=== PATIENT | female | born 1945 | race Caucasian/White ===

== ENCOUNTER → 2020-09-12 09:44 | Outpatient (CLI) | payer MEDICARE, SELFPAY ==
--- NOTE | 2020-09-12 09:49 | CT_ITS ---
STUDY: LOW DOSE CT LUNG CANCER SCREENING REASON FOR EXAM: Female, 75 years old. One pack per day smoking history x50 years TOBACCO USE -- CHRONIC TOBACCO USE,SCREENING FOR LUNG CA RADIATION DOSAGE (If Supplied By Facility): CTDIvol = ( 2.01 ) mGy, DLP = ( 61.68 ) mGycm TECHNIQUE: No contrast was administered. Low dose technique was utilized (average mAS-38 and kVp 120). 1.25 mm axial source images with a slice interval of 1.25-mm were reconstructed in lung windows. 2.5 mm axial source images with a slice interval of 2.5-mm were reconstructed in lung windows. 5.0 mm axial source images with a slice interval of 5.0-mm were reconstructed in soft tissue windows. Nodule measured using lung windows on PACS and/or independent workstation with automated measurement of minimum and maximum diameter. Nodule measurement reported as average diameter rounded to the nearest whole number. Growth is defined as an increase ins size of greater than 1.5 mm. COMPARISON: None. NODULES: Lung windows show underlying emphysema with diffuse interstitial fibrotic changes, nonspecific pleural thickening in both hemithoraces and honeycombing predominantly in the periphery of the upper lobes. There is no organized infiltrate or ground glass opacifications. There is however, a noncalcified nodule in the medial aspect of the left lower lobe on axial image 114. It measures 1.1 x 0.8 x 1.06 cm. Since there are no previous studies available for comparison, further evaluation with PET/CT scan is recommended to assess for abnormal uptake. Aorta: Peripheral calcifications, no demonstrated aneurysm Coronary arteries: Calcified coronary vessels. CT/Low Dose CT Lung Screening IMPRESSION: There is a concerning noncalcified spiculated 1.1 x 0.8 x 1.1 cm noncalcified nodule in the medial aspect of the left lower lobe best seen on axial image 114. Since there are no previous studies available for comparison, further evaluation with PET/CT recommended Lung Rads category 4A IMPORTANT NOTES FOR USE: ACR Lung-RADS Version 1.1 Assessment Categories Release Date: 2018 Category: Coded 0-4 bases on nodule(s) with highest degree of suspicion. Negative screen is defined as categories 1 and 2; a positive screen is defined as categories 3 and 4. Category 3 and 4A nodules that are unchanged on interval CT should be coded as category 2, and individuals returned to screening in 12 months. Category 4X: Category 3 or 4 nodules with additional imaging findings that increase the suspicion of lung cancer, such as spiculation, GGN that doubles in size in 1 year, enlarged lymph notes, etc. Category Modifiers: S (significant finding unrelated to lung cancer) Electronically Signed: Lavon Zamora MD at 12:38 EDT , Service support ,
== END ==
PROVIDERS: PCP Student in an Organized Health Care Education/Training Program; Referring Provider Student in an Organized Health Care Education/Training Program; Visit Provider Student in an Organized Health Care Education/Training Program
DX: Z12.2 Encounter for screening for malignant neoplasm of respiratory organs (principal); Z87.891 Personal history of nicotine dependence
CPT/HCPCS: 71271

== ENCOUNTER → 2020-12-22 11:05 | Outpatient (CLI) | payer MEDICARE, SELFPAY ==
[2020-12-22 11:37] VITALS: PULSE 103; PULSE 104; PULSE 105; PULSE 106; PULSE 93; PULSE 94; O2SAT 90; O2SAT 91; O2SAT 92; O2SAT 94; O2SAT 95
--- NOTE | 2020-12-23 10:18 | WT_ITS ---
PSN 6 Minute Walk Test 6 Minute Walk Test 6 Minute Walk Test: 6 Minute Walk Test PSN:6-Minute Walk Test Start: 12/22/20 11:36 Freq: Status: Active Protocol: RESP.6MINW Document 12/22/20 11:37 [facility] (Rec: 12/22/20 11:39 [facility] [id number]) 6 Minute Walk Test Date Performed 12/22/20 Time Performed 11:15 Height 5 ft 3 in Weight: 46.72 kg Weight in Pounds 103.[address]: Rosendo Lieberman Assistive device used: None Pre-test Oxygen Delivery Method Room Air Pulse Ox (%) 94 Pulse Rate (60-100 beats/min) 93 Dyspnea Vinnie Scale (0-10) 3 1st minute Oxygen Delivery Method Room Air Pulse Ox (%) 91 Pulse Rate (60-100 beats/min) 106 H Dyspnea Vinnie Scale (0-10) 3 Number of Rests Taken 0 2nd minute Oxygen Delivery Method Room Air Pulse Ox (%) 90 Pulse Rate (60-100 beats/min) 103 H Dyspnea Vinnie Scale (0-10) 3 Number of Rests Taken 0 3rd minute Oxygen Delivery Method Room Air Pulse Ox (%) 90 Pulse Rate (60-100 beats/min) 104 H Dyspnea Vinnie Scale (0-10) 3 Number of Rests Taken 0 4th minute Oxygen Delivery Method Room Air Pulse Ox (%) 91 Pulse Rate (60-100 beats/min) 103 H Dyspnea Vinnie Scale (0-10) 3 Number of Rests Taken 0 5th minute Oxygen Delivery Method Room Air Pulse Ox (%) 91 Pulse Rate (60-100 beats/min) 106 H Dyspnea Vinnie Scale (0-10) 4 Number of Rests Taken 0 Reported Symptoms Increased Work of Breathing 6th minute Oxygen Delivery Method Room Air Pulse Ox (%) 92 Pulse Rate (60-100 beats/min) 105 H Dyspnea Vinnie Scale (0-10) 4 Number of Rests Taken 0 Reported Symptoms Increased Work of Breathing Post-test Oxygen Delivery Method Room Air Pulse Ox (%) 95 Pulse Rate (60-100 beats/min) 94 Dyspnea Vinnie Scale (0-10) 3 Full Laps Walked 20 Partial Lap, Number of Tiles Walked 39 Total Distance Walked (ft) 1219 Interpretation Interpretation: The patient ambulated 1219 feet over the course of 6 minutes beginning on room air without assistive devices or breaks. Pretesting oxygen saturation was noted to be 94% on room air. With ambulation, the dina oxygen saturation was 90%. This represents a significant exertional oxygen desaturation. Recommendations Recommendations: There is no indication for the use of supplemental oxygen at this time. However, close interval follow-up is recommended, given the degree of oxygen desaturation noted during this study.
== END ==
PROVIDERS: PCP Student in an Organized Health Care Education/Training Program; Referring Provider Internal Medicine Critical Care Medicine; Visit Provider Internal Medicine Critical Care Medicine
DX: J44.9 Chronic obstructive pulmonary disease, unspecified (principal)
CPT/HCPCS: 94618

== ENCOUNTER → 2021-01-24 14:43 | Outpatient (CLI) | payer MEDICARE, SELFPAY ==
--- NOTE | 2021-01-24 14:44 | CT_ITS ---
STUDY: CT CHEST WITHOUT CONTRAST REASON FOR EXAM: Female, 75 years old. Lung Nodule. Bilateral mastectomy. RADIATION DOSAGE (If Supplied By Facility): CTDIvol = ( 6.05 ) mGy, DLP = ( 208.71 ) mGycm TECHNIQUE: Transaxial imaging was performed without the administration of intravenous contrast material. Multiplanar coronal and sagittal images were reformatted. Individualized dose optimization techniques were used for this CT. COMPARISON: Comparison is made with prior study dated 09/12/2020. FINDINGS: The patient is status post bilateral mastectomy. Hyperinflation. The symphysis changes. Mild linear scarring at the lung apices. The previously seen 1.1 cm x 1.1 cm spiculated density in the posterior segment of the left lower lobe has decreased in size. It presently measures 7 mm. This most likely represents a focal area of scarring. There is no demonstrated pleural abnormality. There are calcifications of the coronary arteries. There are multiple small lymph nodes within the mediastinum, which are normal in size and morphology most compatible with reactive lymph hyperplasia. Normal hilar regions. Normal unenhanced pulmonary arteries. There is atherosclerotic calcification of the aortic arch with tortuosity and elongation of the aortic arch and descending thoracic aorta. There are multi-level degenerative changes of the thoracic spine. There is no demonstrated abnormality of the visualized upper abdomen. CT/Chest without Contrast IMPRESSION: Interval decrease in size of the noncalcified nodule in the posteromedial segment of the left lower lobe. It presently measures 7 mm. The remainder the examination is unchanged. Electronically Signed: Andrey Pérez MD at 15:31 EDT , Service support ,
== END ==
PROVIDERS: PCP Student in an Organized Health Care Education/Training Program; Referring Provider Internal Medicine Critical Care Medicine; Visit Provider Internal Medicine Critical Care Medicine
DX: R91.1 Solitary pulmonary nodule (principal)
CPT/HCPCS: 71250

== ENCOUNTER → 2021-12-28 | Outpatient (CLI) | payer MEDICARE, SELFPAY ==
--- NOTE | 2021-12-28 12:52 | CT_ITS ---
STUDY: LOW DOSE CT LUNG CANCER SCREENING REASON FOR EXAM: Female, 76 years old. Smoker and gt; 40 pack years RADIATION DOSAGE (If Supplied By Facility): CTDIvol = ( 2.01 ) mGy, DLP = ( 67.71 ) mGycm TECHNIQUE: No contrast was administered. Low dose technique was utilized (average mAS-38 and kVp 120). 1.25 mm axial source images with a slice interval of 1.25-mm were reconstructed in lung windows. 2.5 mm axial source images with a slice interval of 2.5-mm were reconstructed in lung windows. 5.0 mm axial source images with a slice interval of 5.0-mm were reconstructed in soft tissue windows. COMPARISON: Comparison is made with prior study dated 01/24/2021. NODULES: Stable 9.5 mm spiculated nodule in the posterior medial segment of the left lower lobe as seen on axial image #123. Emphysema: Hyperinflation. Emphysematous changes. Stable increased markings at the lung apices suggestive of prior scarring. Endobronchial lesion: None Aorta: Atherosclerotic plaque formation of the aortic arch. CORONARY ARTERIES: Coronary artery calcification is seen. Heart: Unremarkable Pulmonary artery: Unremarkable Mediastinal nodes: Unremarkable Other chest and abdominal findings: Bilateral breast prostheses. Increased thoracic kyphosis. CT/Low Dose CT Lung Screening IMPRESSION: Lung-RADS category 2 - Continue annual screening with LDCT in 12 months. IMPORTANT NOTES FOR USE: ACR Lung-RADS Version 1.1 Assessment Categories Release Date: 2018 Category: Coded 0-4 bases on nodule(s) with highest degree of suspicion. Negative screen is defined as categories 1 and 2; a positive screen is defined as categories 3 and 4. Category 3 and 4A nodules that are unchanged on interval CT should be coded as category 2, and individuals returned to screening in 12 months. Category 4X: Category 3 or 4 nodules with additional imaging findings that increase the suspicion of lung cancer, such as spiculation, GGN that doubles in size in 1 year, enlarged lymph notes, etc. Category Modifiers: S (significant finding unrelated to lung cancer) Electronically Signed: Andrey Pérez MD at 13:48 EDT ,
[2021-12-28 13:00] VITALS: PULSE 100; PULSE 102; PULSE 103; PULSE 107; PULSE 91; PULSE 97; O2SAT 91; O2SAT 92; O2SAT 93; O2SAT 94; O2SAT 95
--- NOTE | 2021-12-28 14:52 | PCM.PSN.6M ---
PSN 6 Minute Walk Test 6 Minute Walk Test 6 Minute Walk Test: 6 Minute Walk Test PSN:6-Minute Walk Test Start: 12/28/21 13:12 Freq: Status: Active Protocol: RESP.6MINW Document 12/28/21 13:00 [facility] (Rec: 12/28/21 13:16 [id number]) 6 Minute Walk Test Date Performed 12/28/21 Time Performed 13:00 Height 5 ft 4 in Weight: 48.081 kg Weight in Pounds 106.[address]: Sherri Mancera MANAGER [employer] FIO2 (% Oxygen) 21 Assistive device used: None Pre-test Oxygen Delivery Method Room Air Pulse Ox (%) 95 Pulse Rate (60-100 beats/min) 91 Dyspnea Vinnie Scale (0-10) 0 Exertion Vinnie Scale (6-20) 6 1st minute Oxygen Delivery Method Room Air Pulse Ox (%) 94 Pulse Rate (60-100 beats/min) 103 H 2nd minute Oxygen Delivery Method Room Air Pulse Ox (%) 91 Pulse Rate (60-100 beats/min) 107 H 3rd minute Oxygen Delivery Method Room Air Pulse Ox (%) 93 Pulse Rate (60-100 beats/min) 102 H 4th minute Oxygen Delivery Method Room Air Pulse Ox (%) 92 Pulse Rate (60-100 beats/min) 103 H 5th minute Oxygen Delivery Method Room Air Pulse Ox (%) 92 Pulse Rate (60-100 beats/min) 103 H 6th minute Oxygen Delivery Method Room Air Pulse Ox (%) 93 Pulse Rate (60-100 beats/min) 100 Post-test Oxygen Delivery Method Room Air Pulse Ox (%) 95 Pulse Rate (60-100 beats/min) 97 Dyspnea Vinnie Scale (0-10) 3 Exertion Vinnie Scale (6-20) 8 Full Laps Walked 20 Partial Lap, Number of Tiles Walked 0 Total Distance Walked (ft) 1180 Interpretation Interpretation: The patient was able to ambulate 1180 feet over the course of 6 minutes on room air with no assistive devices or breaks. The patient did experience significant desaturation from a baseline of 95% to as low as 91%. There was an element of reflexive tachycardia with a peak heart rate of 108 bpm. These findings are consistent with a respiratory limitation exercise tolerance. Recommendations Recommendations: No supplemental oxygen is indicated at this time. However, patient will need to be followed closely given level of desaturation.
== END | disposition home or self-care (01) ==
LOC: CT 12:50
PROVIDERS: PCP Student in an Organized Health Care Education/Training Program; Referring Provider Nurse Practitioner Acute Care; Visit Provider Nurse Practitioner Acute Care
DX: J44.9 Chronic obstructive pulmonary disease, unspecified (principal); Z87.891 Personal history of nicotine dependence
CPT/HCPCS: 71271; 94618

== ENCOUNTER → 2022-01-02 | Outpatient (CLI) | payer MEDICARE, SELFPAY ==
--- NOTE | 2022-01-03 09:59 | PFT ---
INTRODUCTION: The patient is a 76-year-old female that presents for pulmonary function studies secondary to a diagnosis of COPD. Respiratory therapy reported good patient effort. Bronchodilators were used during testing. INTERPRETATION: Forced expiration spirometry demonstrates the presence of a moderately severe large airways obstructive ventilatory defect. There was no significant response to aerosolized bronchodilators. Spirograms are of good quality and plateau gradually indicating slow emptying of the lungs. Body plus tomography was performed and revealed an elevated RV to 179% of predicted, indicative of underlying air trapping. Diffusing capacity by single breath CO was within normal limits. IMPRESSION: Irreversible moderately severe large airways obstructive ventilatory defect with associated air trapping and preserved diffusing capacity.
== END | disposition home or self-care (01) ==
LOC: PSN 09:50
PROVIDERS: PCP Student in an Organized Health Care Education/Training Program; Referring Provider Nurse Practitioner Acute Care; Visit Provider Nurse Practitioner Acute Care
DX: J44.9 Chronic obstructive pulmonary disease, unspecified (principal)
CPT/HCPCS: 94060; 94726; 94729

== ENCOUNTER → 2023-01-05 | Outpatient (CLI) | payer MEDICARE, SELFPAY ==
--- NOTE | 2023-01-05 09:35 | CT_ITS ---
EXAM: CT CHEST, LUNG CANCER SCREENING WITHOUT INTRAVENOUS CONTRAST CLINICAL INDICATION: 1 ppd for 55 years. COPD TECHNIQUE: Helically acquired images were obtained of the chest without intravenous contrast using low dose (LDCT) lung cancer screening protocol. This CT exam was performed using one or more of the following dose reduction techniques: automated exposure control, adjustment of the mA and/or kV according to patient size, and/or use of iterative reconstruction technique. COMPARISON: 12/28/2021. FINDINGS: LUNGS AND PLEURAL SPACES: Increased size of spiculated nodule versus coalescence of 2 adjacent small nodules in the medial aspect of the left lower lobe now measuring approximately 1.6 cm (images 107 through 124, series 2). Minimal lingular scarring and/or atelectasis. No pleural effusion or thickening. No pneumothorax. HEART: Coronary artery calcifications. Heart size is normal. No pericardial effusion. MEDIASTINUM: No significant abnormality. No mediastinal or hilar adenopathy. Esophagus is unremarkable. No hiatal hernia. THYROID: No significant abnormality. No thyroid lesions. BONES/JOINTS: Likely minimal/early fibrotic changes particularly at the right apex. Degenerative changes in the spine. No suspicious lytic or blastic abnormality. VASCULATURE: Atherosclerosis of the aorta and its branch vessels. LYMPH NODES: No significant abnormality. No enlarged lymph nodes. CT/Low Dose CT Lung Screening IMPRESSION: ACR Lung CT Screening Reporting And Data System (Lung-RADS) score: 4XS - Very Suspicious. There are features or imaging findings that increase the suspicion of malignancy and additional clinically significant or potentially clinically significant findings described in this report. Recommend chest CT with or without contrast, PET/CT and/or tissue sampling depending on the probability of malignancy and comorbidities. PET/CT may be used when there is a >=8 mm solid component. For new large nodules that develop on an annual repeat screening CT, a 1 month LDCT may be recommended to address potentially infectious or inflammatory conditions. Electronically Signed: Torey Mahmood DO at 10:03 EDT ,
== END | disposition home or self-care (01) ==
LOC: CT 09:33
PROVIDERS: PCP Student in an Organized Health Care Education/Training Program; Referring Provider Nurse Practitioner Acute Care; Visit Provider Nurse Practitioner Acute Care
DX: Z12.2 Encounter for screening for malignant neoplasm of respiratory organs (principal); F17.210 Nicotine dependence, cigarettes, uncomplicated
CPT/HCPCS: 71271

== ENCOUNTER → 2023-01-16 | Outpatient (CLI) | payer MEDICARE, SELFPAY ==
[2023-01-16 11:22] LABS: Platelet Count 155 K/mm3 (150-450)
[2023-01-16 11:31] LABS: International Normalized Ratio 0.9
[2023-01-16 11:32] LABS: Partial Thromboplast Time 24.4 Seconds (24.1-36.2)
== END | disposition home or self-care (01) ==
PROVIDERS: PCP Student in an Organized Health Care Education/Training Program; Referring Provider Nurse Practitioner Acute Care; Visit Provider Nurse Practitioner Acute Care
DX: I48.91 Unspecified atrial fibrillation (principal); R91.8 Other nonspecific abnormal finding of lung field
CPT/HCPCS: 36415; 85049; 85610; 85730

== ENCOUNTER 2023-02-18 07:43 | Outpatient (CLI) | payer MEDICARE, SELFPAY ==
[2023-02-18] VITALS (11 sets, daily range): BP systolic 94–144; BP diastolic 55–89; PULSE 71–93; RESP 14–21; TEMP 36.6; O2SAT 93–98; BMI 16.8
--- NOTE | 2023-02-18 | ASPIGT_PTH ---
PATIENT: SUNSHINE SHELL LOC: [place] U#:[id number] AGE/SX: 77/F ROOM: RE02/18/[address]: HALEY Bowen : 1945 BED: DIS: 02/18/2023 SPEC #: [id number] RECD: 02/18/23 09:30 STATUS: MARBELLA DEDE #: [id number] SHANIA: 02/18/23 00:[address]: Sherri Mancera NP DEPT: SURGICAL PATHOLOGY RECD BY: Preeti Dale ENTERED: 02/18/23 15:23 SP TYPE: ASP RAD OTHR DR: Dr. Janusz Scott DO Tissues: Left lung, NOS Procedures: FNA Specimen Adequacy Special Stain Group II Surgery Specimen Level IV Imprint (control) HEADER OPERATION: CT-guided lung biopsy PRE-OP DIAGNOSIS: Left lung mass TISSUE SUBMITTED: Left lung mass 20-guage x4 MICROSCOPIC DIAGNOSIS Left lung mass, CT-guided core biopsy: Non-small cell carcinoma, favor squamous cell carcinoma. See comment. YEYO:jacob 02/19/2023 COMMENT The specimen is evaluated at the time of biopsy by Dr. Oscar. Immediate Evaluation = Malignant cells present derived from non-small cell carcinoma. Immunohistochemistry ([id number]) supports the above diagnosis. Molecular studies on the tumor can be performed if clinically indicated. Please notify the laboratory if they are needed. Case has been reviewed in consultation with Dr. Hill who concurs with the above diagnosis. IDC:AM MICROSCOPIC DESCRIPTION Slides are reviewed. GROSS DESCRIPTION Received in fixative is one container labeled with the patient's name and designated left lung mass. The specimen consists of multiple irregular fragments of louis soft tissue that in aggregate measure 0.5 x 0.2 x <0.1 cm. The specimen is totally submitted in one cassette. Two touch imprints are prepared at the time of core biopsy. / YEYO:jacob 02/18/2023 TC:0 [facility]: [id number], [id number] ADDENDUM ADDENDUM ADDENDUM ADDENDUM ADDENDUM ADDENDUM ADDENDUM ADDENDUM ADDENDUM ADDENDUM ADDENDUM ADDENDUM ADDENDUM ADDENDUM ADDENDUM ADDENDUM ADDENDUM ADDENDUM ADDENDUM ADDENDUM ADDENDUM ADDENDUM ADDENDUM 04/10/2023 09:49 ADDENDUM 04/10/2023 09:49 ADDENDUM 04/10/2023 09:49 ADDENDUM 04/10/2023 09:49 ADDENDUM 04/10/2023 09:49 PD-L1 (KEYTRUDA) IMMUNOHISTOCHEMICAL ANALYSIS FROM [facility] RESULTS: Tumor proportion score: <1% / Negative ONKOSIT NGS SOLID TUMOR SEQUENCING REPORT FROM [facility] RESULT SUMMARY: Abnormal DETECTED GENOMIC ALTERATIONS: Tier II: Variants of Potential Clinical Significance TP53 [id number] Tier III: Variants of Unknown Clinical Significance AKT1 p.[id number] PERTINENT NEGATIVE RESULTS: The following genes are NEGATIVE for clinically relevant mutations. Mutational hotspots and surrounding exonic regions were interrogated for DNA level point mutations and indels (fusions not assayed). ALK, BRAF, CTNNB1, DDR2, EGFR, EPHA2, ERBB2, ESR1, FGFR1, FGFR2, FGFR3, GNA11, GNAQ, HRAS, IDH1, IDH2, KIT, KRAS, MAP2K1, MET, MTOR, NOTCH1, NRAS, PDGFRA, PIK3CA, PTEN, RAC1, RET, ROS1 Please see complete report in e-chart or EMR
--- NOTE | 2023-02-18 | IMM_PTH ---
PATIENT: SUNSHINE SHELL LOC: CT U#:[id number] AGE/SX: 77/F ROOM: RE02/18/[address]: HALEY Bowen : 1945 BED: DIS: 02/18/2023 SPEC #: [id number] RECD: 02/19/23 13:24 STATUS: MARBELLA REQ #: [id number] SHANIA: 02/18/23 00:[address]: Sherri Mancera NP DEPT: IMMUNOHISTOCHEMISTRY RECD BY: Preeti Dale ENTERED: 02/19/23 13:25 SP TYPE: IMMUNO OTHR DR: Dr. Janusz Scott DO Tissues: Left lung, NOS Procedures: RCC (add) NAPSIN A (add) CK20 (add) CK5-6 (add) CK7 (add) CK8 (add) HEP PAR (add) NM (add) TTF1 (add) Pankeratin (add) P40 (add) ER (initial) PHYSICIAN & [address] [address] SPECIMEN INFORMATION: Tissue Source: Left lung mass Clinical Info: Left lung mass Specimen Number: [id number] CPT code: 11462, 65016 x11 METHODOLOGY: Deparaffinized sections of prefer/formalin-fixed tissue or PAP/DQ stained slides are incubated with monoclonal/polyclonal antibodies/oligonucleotide probes. Localization is made via biotin free immunoperoxidase method. Appropriate controls are performed and reacted as expected. Results on target cell population are indicated in the following table: RESULTS: ANTIBODY / CLONE RESULT ER (6F11) negative NM (1E2) negative AE1-3 (AE1/AE3/PCK26) positive CK7 (OV-TL12/30) positive CK8 (37mtgzO59) positive CK20 (KS20.8) negative TTF-1 (8G7G3/1) negative Napsin A (Rabbit Polyclonal) negative HepPar (OCh1E5) negative RCC (PN-15) negative CK5-6 (D5 & 1684) positive P40 (BC28) positive These tests were developed and their performance characteristics determined by [facility]. They may not have been cleared or approved by the U.S. Food and Drug Administration. The FDA has determined that such clearance or approval is not necessary. The above immunohistochemical/dualISH markers are ordered and reviewed by the Pathologist. INTERPRETATION: Left lung mass, CT-guided biopsy: Non-small cell carcinoma, favor squamous cell carcinoma. YEYO:jacob 02/20/2023
--- NOTE | 2023-02-18 07:46 | CT_ITS ---
PROCEDURE: CT GUIDED CORE NEEDLE BIOPSY OF A left lower lobe LUNG LESION INDICATION: Female, 77 years old. Left lower lobe mass PHYSICIAN: Dr. Beto Angel CONSENT: Written informed consent was obtained having explained the risks, benefits and alternatives in detail with the patient who accepted the risks and agreed to proceed. Laboratory review and clinical assessment was performed. CONSCIOUS SEDATION PROTOCOL: The Drugs used were: 1 mg Versed, IV., and 25 mcg Fentanyl, IV. The sedation time was: 15 minutes. The conscious sedation protocol was independently monitored. RADIATION DOSAGE (If Supplied By Facility): CTDIvol = ( 16 ) mGy, DLP = ( 220.1 ) mGycm Individualized dose optimization techniques were used for this CT. TECHNIQUE: The patient was placed in the prone position. A noncontrast CT was performed to localize the lesion in the superior segment of the left lower lobe . The skin surface was prepped and draped in a sterile fashion. 1% lidocaine was used for local anesthesia. Using CT guidance, a 20-gauge coaxial biopsy device was advanced to the periphery of the lesion. A total of 6 core specimens were obtained. The specimens were placed in a formalin solution. A post procedure CT demonstrated no adverse sequelae or pneumothorax. The patient tolerated the procedure well without adverse event. A negative biopsy does not exclude malignancy. Further imaging or clinical followup based on patient condition and degree of clinical suspicion for malignancy. Suggest rebiopsy, if biopsy results do not match with clinical scenario. CT/Biopsy/Inj or Needle Placement IMPRESSION: 1. CT directed core needle biopsy of the left lower lobe pulmonary nodule using CT image guidance with image documentation as described. Pathology results are pending. 2. Conscious Sedation protocol utilized with independent monitoring. Electronically Signed: Andrey Pérez MD at 10:57 EDT ,
[2023-02-18 07:56] LABS: Absolute Lymphocyte Count 2.15 X10^3/uL (0.83-4.51); Absolute Neutrophil Count 3.8 X10^3/uL (2.0-7.7); Basophil# 0.04 X10^3/uL; Basophil% 0.6 % (0-1); Eosinophil# 0.16 X10^3/uL; Eosinophils% 2.3 % (0-5); Hematocrit 44.4 % (37-47); Hemoglobin 13.9 g/dL (12.0-15.0); Lymphocyte # 2.15 X10^3/ul (0.83-4.51); Lymphocyte % 31.1 % (19-41); Mean Corp Hgb Conc 31.3 g/dL (32-36); Mean Corpuscular Hgb 30.2 pg (27.0-32.0); Mean Corpuscular Volume 96.3 fL (81-99); Mean Platelet Vol. 12.7 fl (6.2-12.0); Monocyte# 0.78 X10^3/uL; Monocyte% 11.3 % (0-10); NRBC Flagged by Analyzer 0 % (0-5); Neutrophil # 3.77 X10^3/uL (2.7-7.7); Neutrophil % 54.4 % (47-70); Platelet Count 147 K/mm3 (150-450); RBC Distribution Width SD 50.2 fl (35.1-43.9); Red Blood Count 4.61 M/mm3 (4.2-5.4); White Blood Count 6.9 K/mm3 (4.4-11.0)
[2023-02-18 08:07] LABS: International Normalized Ratio 0.9; Prothrombin Time (Protime)PT. 12.1 SECONDS (11.7-14.9)
[2023-02-18] MEDS: 0.9% Normal Saline (250mL Bag) 250 ML 15 ML IV (08:27)
[2023-02-18] MEDS: 0.9% Saline Lock 10 ML Syringe IV (08:27)
[2023-02-18] MEDS: fentaNYL 100 MCG/2 ML Ampul IV (09:19)
[2023-02-18] MEDS: Midazolam 2 MG/2 ML Syringe IV (09:19)
[2023-02-18] MEDS: Lidocaine 2% (20 ml mdv) 20 ML Vial INFILT (09:25)
--- NOTE | 2023-02-18 09:45 | RAD_ITS ---
STUDY: X-RAY CHEST REASON FOR EXAM: Female, 77 years old. Postlung biopsy TECHNIQUE: Inspiratory and expiratory portable views COMPARISON: Previous CTs FINDINGS: There is a small left apical pneumothorax effecting less than 10% of the left hemithorax without mediastinal shift. Chronic interstitial changes noted in both lung campbell without infiltrate or effusion. Normal size heart. Normal mediastinum and isaac. Normal visualized pulmonary arteries. Normal visualized aortic arch and descending thoracic aorta. There are diffuse degenerative changes of the visualized thoracic spine. Normal visualized ribs, clavicles, and shoulders. There is no demonstrated abnormality of the visualized soft tissue structures of the upper abdomen. RAD/Chest Insp/Exp 2 View IMPRESSION: Small left apical pneumothorax without mediastinal shift after biopsy Electronically Signed: Lavon Zamora MD at 9:55 EDT ,
--- NOTE | 2023-02-18 10:05 | PCM.OP.PRO ---
Procedure Report Date of Procedure: 02/18/23 Assessment & Plan Assessment/Plan (1) Lung mass: PLAN: PROCEDURE: CT GUIDED CORE NEEDLE LUNG BIOPSY ORDERING PROVIDER: Sherri Mancera CNP INDICATION: Female, 77 years old. Left lower lung mass. PROVIDER: IVAN Kathleen CONSENT: Written informed consent was obtained having explained the risks, benefits and alternatives in detail with the patient who accepted the risks and agreed to proceed. Laboratory review and clinical assessment was performed. PRE-PROCEDURE SEDATION ASSESSMENT: Current history and physical dictated by referring physician and reviewed. No clinical changes since date of exam. Patient has an ASA Class of 2. PROCEDURAL SEDATION PROTOCOL: The Drugs used were: 1 mg Versed, IV, and 50 mcg Fentanyl, IV. The sedation time was: 16 minutes, starting at 0919 and terminated at 0935. The procedural sedation protocol was independently monitored by the department nurse. RADIATION DOSAGE (If Supplied By Facility): CTDIvol =15.97 mGy, DLP = 220.10 mGycm Individualized dose optimization techniques were used for this CT. TECHNIQUE: The patient was placed in a prone position. A noncontrast CT was performed to localize the lesion in the left lower lobe. The skin surface was prepped and draped in a sterile fashion. 2% lidocaine was used for local anesthesia. Using CT guidance, a 20-gauge coaxial biopsy device was advanced to the periphery of the lesion. A total of 4 core specimens were obtained. Specimens were microscopically reviewed by pathology in the CT suite and placed in formalin solution. The biopsy needle was removed and a sterile dressing was applied to the biopsy site. The patient tolerated the procedure well. An immediate chest xray was ordered, per protocol. A negative biopsy does not exclude malignancy. Further imaging or clinical followup based on patient condition and degree of clinical suspicion for malignancy. Suggest rebiopsy, if biopsy results do not match with clinical scenario. IMPRESSION: 1. CT directed core needle biopsy of left lower lobe nodule using CT image guidance with image documentation as described. Pathology results are pending. 2. Procedural Sedation protocol utilized with independent monitoring by the department nurse. Procedures Radiology Radiology CT Procedures: 56712 Biopsy Lung
--- NOTE | 2023-02-18 11:50 | RAD_ITS ---
STUDY: X-RAY CHEST REASON FOR EXAM: Female, 77 years old. 2 hr post lung biopsy -- 2 hours post lung biopsy TECHNIQUE: AP inspiration and expiration views following a left lung biopsy. COMPARISON: Comparison is made with prior study done earlier today. FINDINGS: Stable appearance of the 5% left apical pneumothorax. RAD/Chest Insp/Exp 2 View IMPRESSION: Stable appearance of the small left apical pneumothorax. The patient is asymptomatic. Discharge instructions were given to the patient. Electronically Signed: Andrey Pérez MD at 14:56 EDT ,
== END 2023-02-18 23:59 | disposition home or self-care (01) ==
PROVIDERS: Radiology Diagnostic Radiology; PCP Student in an Organized Health Care Education/Training Program; Referring Provider Nurse Practitioner Acute Care; Visit Provider Nurse Practitioner Acute Care
DX: C34.92 Malignant neoplasm of unspecified part of left bronchus or lung (principal); J44.9 Chronic obstructive pulmonary disease, unspecified; I48.91 Unspecified atrial fibrillation; F17.210 Nicotine dependence, cigarettes, uncomplicated
CPT/HCPCS: 32408; 36415; 71046; 77012; 85025; 85610; 85730; 88161; 88172; 88305; 88313; 88341; 88342; 99156; J7050; A4216; C2613

== ENCOUNTER 2023-02-25 14:54 | Emergency (ER) | payer MEDICARE, SELFPAY ==
[2023-02-25 14:54] VITALS: BP 130/115; PULSE 92; RESP 16; TEMP 36.3; O2SAT 96; BMI 16.9
--- NOTE | 2023-02-25 15:10 | EX.ED.DYSGE1 ---
HPI History of Present Illness Chief Complaint: Shortness of Breath Informant: patient Narrative Narrative: Patient sent from pulmonary office secondary to pneumothorax. Patient is a history of COPD and had a lung biopsy on the . Following her biopsy she had a small 5% pneumothorax. She had repeat x-rays today that show only a mild increase in her pneumothorax. Patient tells me her breathing today is better than it has been a week. She does have a mild cough. She denies chest pain. She is not normally on oxygen. [facility] REPLACED BY [facility] Medical History Aortic valve sclerosis Breast cancer Chest pressure COPD (chronic obstructive pulmonary disease) Mass of right side of neck Mild mitral valve regurgitation Nasal lesion Numbness and tingling in left arm Paronychia Tobacco abuse Home Medications albuterol sulfate 90 mcg/actuation aerosol inhaler 2 puff inhalation Q6H PRN sob 12/15/20 [History Last Taken Unknown] tamoxifen 20 mg tablet 20 mg PO DAILY 12/15/20 [History Last Taken Unknown] rosuvastatin 10 mg tablet mg 02/18/23 [History Last Taken Unknown] Fluad Quad [id number](65yr up)(PF) 60 mcg (15 mcg x 4)/0.5mL IM syringe (flu vac 2022 [id number](PF)) 60 mcg IM ONCE #0.5 mL 02/25/23 [Clinic Last Taken Unknown] Allergy/AdvReac Type Severity Reaction Status Date / Time codeine Allergy Unknown Other Verified 02/25/23 14:56 Family History Father Cancer Lung Brother Cancer Lung Mother CVA (cerebral vascular accident) Hypertension Surgical History History of mastectomy Social History Smoking Status: Current every day smoker tobacco type: cigarettes Tobacco: How many years used: 53 ROS ROS ED Constitutional Constitutional ED: Denies chills or fever(s) Eyes Eyes: Denies change in vision ENT ENT ED: Denies rhinorrhea or sore throat Cardiovascular Cardiovascular: Denies chest pain or palpitations Respiratory/Chest Respiratory/Chest: Reports cough and dyspnea Gastrointestinal Gastrointestinal: Denies abdominal pain, nausea or vomiting Genitourinary Genitourinary ED: Denies dysuria Musculoskeletal Musculoskeletal: Denies back pain or extremity pain Integumentary Denies Abrasions or rash Neurologic Neurologic: Denies headache(s) or weakness Psychiatric Psychiatric: Denies anxiety or depression Allergic/Immunologic Allergic/Immunologic ED: Denies lip swelling or urticaria EXAM Physical Exam Const Vital Signs: 02/25/23 14:54 Temperature 97.4 F L Temperature Source Temporal Pulse Rate 92 Respiratory Rate 16 Blood Pressure 130/115 H Blood Pressure Mean 120 Pulse Ox 96 Oxygen Delivery Method Room Air Positive well nourished and well developed General Appearance ED: well developed Eyes EOMs intact bilaterally Neck no lymphadenopathy Chest Wall inspection of chest normal and palpation of chest normal Resp normal respiratory effort Resp Narrative: Breath sounds are present bilaterally. Cardio regular rate and regular rhythm GI non-tender Palpation: soft Extremity normal to inspection Neuro oriented x3 and no sensory deficits noted Motor Exam: strength 5/5 throughout Psych mental status grossly normal Skin no rashes or lesions noted MDM MDM MDM Narrative Medical decision making narrative: Patient's x-ray that she had done just prior to arrival is reviewed. She does have a small left-sided pneumothorax. Radiology reading states this is a mild increase when compared to last study from a week ago and at that time it was quantified at 5%. I spoke with Dr. Rosendo Lieberman, on-call for pulmonology. He was not made aware of this patient coming to the emergency room. With having a small pneumothorax like this and being completely asymptomatic he does not feel that she needs anything further done at this time. Patient is to monitor her oxygen levels and follow-up for any increased chest pain or shortness of breath. She will follow-up in the office. Discharge Plan Triage Chief Complaint: Shortness of Breath ED Provider: Yessenia Gunter Dx/Rx/DC Orders Clinical Impression: Pneumothorax after biopsy Instructions: Pneumothorax (Collapsed Lung) Prescriptions: No Action tamoxifen 20 mg tablet 20 mg PO DAILY albuterol sulfate 90 mcg/actuation HFA aerosol inhaler 2 puff inhalation Q6H PRN (Reason: sob) Fluad Quad (65y up)(PF) 60 mcg (15 mcg x 4)/0.5 mL syringe 60 mcg IM ONCE Qty: 0.5 0RF rosuvastatin 10 mg tablet Patient Comments: TAKE 1 TABLET BY MOUTH AT BEDTIME Primary Care Provider: Janusz Scott Referrals: Rosendo Lieberman DO [Med Staff - Active Staff] - 5-7 Days Janusz Scott DO [Primary Care Provider] - Disposition Disposition: Home, Self Care
== END 2023-02-25 15:46 | disposition home or self-care (01) ==
LOC: ED 15:29
PROVIDERS: Emergency Provider Emergency Medicine; PCP Student in an Organized Health Care Education/Training Program; Visit Provider Emergency Medicine
DX: J95.811 Postprocedural pneumothorax (principal); J44.9 Chronic obstructive pulmonary disease, unspecified; F17.210 Nicotine dependence, cigarettes, uncomplicated; Z79.899 Other long term (current) drug therapy
CPT/HCPCS: 99282

== ENCOUNTER → 2023-02-25 | Outpatient (CLI) | payer MEDICARE, SELFPAY ==
--- NOTE | 2023-02-25 14:10 | RAD_ITS ---
STUDY: X-RAY CHEST REASON FOR EXAM: Female, 77 years old. Acute shortness of breath s/p lung biopsy TECHNIQUE: AP inspiration and expiration views. COMPARISON: Comparison is made with prior study dated February 18, 2023. FINDINGS: Slight increase in the left-sided pneumothorax as compared to prior study. Underlying hyperinflation and COPD. Normal size heart. Normal mediastinum and isaac. Normal visualized pulmonary arteries. There is atherosclerotic calcification of the aortic arch with tortuosity. There are degenerative changes of the visualized thoracic spine. Normal visualized ribs, clavicles, and shoulders. There is no demonstrated abnormality of the visualized soft tissue structures of the upper abdomen. RAD/Chest PA and Lateral IMPRESSION: Mild degree of increased left-sided pneumothorax as compared to prior study. Underlying hyperinflation and changes compatible with COPD. Electronically Signed: Andrey Pérez MD at 14:34 EDT ,
== END | disposition home or self-care (01) ==
LOC: RAD 13:57
PROVIDERS: PCP Student in an Organized Health Care Education/Training Program; Referring Provider Nurse Practitioner Acute Care; Visit Provider Nurse Practitioner Acute Care
DX: R06.00 Dyspnea, unspecified (principal)
CPT/HCPCS: 71046

== ENCOUNTER → 2023-03-05 | Outpatient (CLI) | payer MEDICARE, SELFPAY ==
--- NOTE | 2023-03-05 10:30 | PET_ITS ---
EXAMINATION: FDG PET/CT ? INDICATIONS: 77-year-old female with a history of primary lung carcinoma, presenting for initial staging examination. ? COMPARISON EXAMINATION: None available ? INDEX LESION SIZE SUV INTERPRETATION Bilateral hemithorax pulmonary parenchyma 11.9 mm 13.1 Fulfills quantitative criteria for viable neoplasm ? Right subscapularis thickening 39.8 mm 2.5 May be further investigated with Magnetic Resonance Imaging ? Left hemithorax pleural effusion ? 1.3 max Quantitative criteria for viable neoplasm are not fulfilled ? ? Left apical lung field, left upper lobe ? 1.0 max Quantitative criteria for viable neoplasm are not fulfilled ? TECHNIQUE: Following the intravenous administration of 13.93 mCi of F-18 deoxyglucose via the right antecubital fossa, multiplanar image acquisitions of the head, neck, chest, abdomen and pelvis to the level of the midthigh, obtained at one-hour post radiopharmaceutical administration contemporaneously interpreted with the current CT of the chest, abdomen and pelvis dated 03/05/2023 via coregistration reveal: SERUM GLUCOSE LEVEL:? 88 mg/dL? HEIGHT:?? 64 inches WEIGHT:?? 98 pounds ? FINDINGS: ? HEAD/NECK:? There is no evidence of abnormal increased glucose metabolism in the pharyngeal mucosal space, parapharyngeal space, oropharynx, bilateral-lateral and anterior neck, hypopharynx and distribution of the larynx. ? The visualized portion of the cerebral cortical-subcortical structures demonstrate symmetric and preserved glucose metabolism. ? CHEST:? Facilitated FDG concentration is noted in the bilateral hemithorax pulmonary parenchyma generating a calculated standard uptake value of 13.1. The maximal axial diameter of the largest parenchymal hypermetabolic density is 11.9 mm. Asymmetric thickening is noted in distribution of the right subscapularis musculature with a calculated standard uptake value of 2.5. The maximal axial diameter of the metabolic, morphologic abnormality is 39.8 mm. Facilitated uptake is diffusely apparent throughout the left hemithorax corresponding to pleural effusion with a calculated standard uptake value of 1.3. ? CT of the chest demonstrates the following anatomic characteristics: A left hemithorax pleural effusion demonstrates minimal increased uptake, as previously described. Atherosclerotic calcification is defined in the thoracic aorta without evidence of dilatation, aneurysm formation. Coronary artery calcification is observed. A left apical and left basilar pneumothorax is defined. A noncalcified spiculated density noted in the left apical lung zone demonstrates a calculated standard uptake value of 1.0. Ground glass changes noted in the right lower lateral lung zone demonstrate no evidence of quantitatively significant increased FDG uptake. ? ABDOMEN/PELVIS:? Normal physiologic distribution of the radiopharmaceutical is identified in the hepatic (2.5) and splenic parenchyma, both renal units, urinary bladder, and visualized intestinal tract. ? CT of the abdomen and pelvis is remarkable for the following: Atherosclerotic calcification is defined in the abdominal aorta without evidence of dilatation, aneurysm formation. Pelvic arterial calcification is observed. Bilateral subcentimeter inguinal soft tissue densities reveal no evidence of increased tracer uptake. The patient appears to be status post hysterectomy. Nodular densities defined in the right posterior perirenal space demonstrate no evidence of increased tracer uptake. A rounded nodular density noted in the left abdominal mesentery is ametabolic. ? SKELETAL:? There is no evidence of quantitatively significant enhanced glucose metabolism on meticulous inspection of the appendicular and axial skeletal structures. ? Degenerative changes defined in the thoracic and lumbar spine demonstrate no evidence of increased glucose metabolism. There are no sclerotic, mixed sclerotic-lytic, or primarily lytic changes defined in the axial skeletal structures with evidence of increased FDG uptake. ? PET/PET/CT Tumor Base -Thigh Init IMPRESSION: 1. ABNORMAL EXAMINATION INDICATIVE OF MALIGNANT-VIABLE NEOPLASM. 2. Increased radiopharmaceutical concentration demonstrated in the bilateral hemithorax pulmonary parenchyma fulfills quantitative criteria for viable neoplasm. (Lau et al, Journal of Nuclear Medicine, 32:1, 1991). 3. Facilitated uptake visualized in the right subscapularis musculature may be further investigated with Magnetic Resonance Imaging secondary to the quantitative degree of uptake. 4. The left hemithorax pleural effusion does not fulfill quantitative criteria for malignant transformation. (Walker, et al, Chest 122:1918, 2002). 5. Facilitated FDG noted in the left apical lung zone, left upper lung does not fulfill quantitative criteria for viable neoplasm. 6. Apparent pneumothorax in the left hemithorax as described above. Electronic Signature Amish Arenas D.O. Accurate Quantification of SUVs for this report are calculated using the exclusive [employer]. (U.S. Patent No. [id number], 674, [phone] B2 [phone] [place] patent [phone]). Standardization and correction of the FDG SUV metric via [employer] technology allow for vendor non-specific objective quantitative examination comparison and optimization of the sensitivity and specificity of the FDG PET-CT examination. . [email or web address]://[email or web address].[email or web address]/[email or web address] Electronically Signed: Amish Arenas DO at 23:52 EST ,
== END | disposition home or self-care (01) ==
PROVIDERS: PCP Student in an Organized Health Care Education/Training Program; Referring Provider Nurse Practitioner Acute Care; Visit Provider Nurse Practitioner Acute Care
DX: Z85.118 Personal history of other malignant neoplasm of bronchus and lung (principal)
CPT/HCPCS: 78815; A9552

== ENCOUNTER → 2023-03-12 | Outpatient (CLI) | payer MEDICARE, SELFPAY ==
--- NOTE | 2023-03-12 | IMM_PTH ---
PATIENT: SUNSHINE SHELL LOC: [facility]#:[id number] AGE/SX: 77/F ROOM: RE03/12/[address]: Dr. Aaron Duarte MD : 1945 BED: DIS: 03/12/2023 SPEC #: [id number] RECD: 03/13/23 13:38 STATUS: MARBELLA REQ #: [id number] SHANIA: 03/12/23 00:[address]: Aaron Duarte DEPT: IMMUNOHISTOCHEMISTRY RECD BY: Preeti Dale ENTERED: 03/13/23 13:40 SP TYPE: IMMUNO OTHR DR: Dr. Janusz Scott DO Tissues: THORACIC FLUID Procedures: Sarwat Ret (add) CK20 (add) CK5-6 (add) CK7 (add) P53 (add) Pankeratin (initial) P40 (add) PHYSICIAN & INSTITUTION [place] [id number] SPECIMEN INFORMATION: Tissue Source: Thoracentesis fluid Clinical Info: Left pleural effusion Specimen Number: [id number] CPT code: 40584, 82631 x6 METHODOLOGY: Deparaffinized sections of prefer/formalin-fixed tissue or PAP/DQ stained slides are incubated with monoclonal/polyclonal antibodies/oligonucleotide probes. Localization is made via biotin free immunoperoxidase method. Appropriate controls are performed and reacted as expected. Results on target cell population are indicated in the following table: RESULTS: ANTIBODY / CLONE RESULT AE1-3 (AE1/AE3/PCK26) positive CK7 (OV-TL12/30) positive CK20 (KS20.8) negative CALRET (polyclonal) positive, rare CK5-6 (D5 & 1684) positive, rare P40 (BC28) negative P53 (DO-7) negative, null pattern These tests were developed and their performance characteristics determined by [facility]. They may not have been cleared or approved by the U.S. Food and Drug Administration. The FDA has determined that such clearance or approval is not necessary. The above immunohistochemical/dualISH markers are ordered and reviewed by the Pathologist. INTERPRETATION: Thoracentesis fluid (cell block): No evidence of malignancy. AM:jacob 03/14/2023
--- NOTE | 2023-03-12 07:22 | US_ITS ---
PROCEDURE: ULTRASOUND GUIDED THORACENTESIS. DATE: March 12, 2023. INDICATION: Female, 77 years old. Left pleural effusion. PHYSICIAN: Andrey Pérez M.D. PROCEDURE: The risks, benefits, and alternatives to the procedure were explained to the patient. The specific risks of bleeding, infection, and pneumothorax requiring chest tube insertion were discussed and accepted. Written informed consent was obtained. Ultrasonographic evaluation of the left lower pleural space was carried out. An adequate pocket was identified. The patient was placed in the sitting, upright position. The overlying skin was prepped and draped in sterile fashion. 1% lidocaine was administered subcutaneously for local anesthesia. Under ultrasound guidance, a 5 Japanese thoracentesis needle/catheter system was advanced into the left posterior lower pleural fluid collection. Approximately 270 mL of imani-colored fluid was drained. The catheter was removed, and a sterile dressing was applied. A specimen was collected and sent to the laboratory for analysis, as requested by the referring clinician. The patient tolerated the procedure well. A chest x-ray was ordered. US/Thoracentesis W US IMPRESSION: Ultrasound-guided left thoracentesis. Electronically Signed: Andrey Pérez MD at 9:25 RUST ,
--- NOTE | 2023-03-12 07:23 | RAD_ITS ---
STUDY: X-RAY CHEST REASON FOR EXAM: Female, 77 years old. Immediately post thoracentesis TECHNIQUE: AP and inspiration expiration views. COMPARISON: Comparison is made with prior study February 25, 2023. FINDINGS: The patient is status post left thoracentesis. Tiny left apical pneumothorax remains although this has improved. RAD/Chest Insp/Exp 2 View IMPRESSION: Status post left thoracentesis. Tiny left apical pneumothorax remains although this has improved as compared to prior study. Electronically Signed: Andrey Pérez MD at 9:14 EST ,
[2023-03-12 08:15] VITALS: BP 115/64; BP 122/59; BP 125/61; PULSE 79; PULSE 82; RESP 16; O2SAT 93; O2SAT 97
[2023-03-12] MEDS: Lidocaine 2% (20 ml mdv) 20 ML Vial INFILT (08:23)
--- NOTE | 2023-03-12 08:30 | FLU_PTH ---
PATIENT: SUNSHINE SHELL LOC: [facility]#:[id number] AGE/SX: 77/F ROOM: RE03/12/[address]: Dr. Aaron Duarte MD : 1945 BED: DIS: 03/12/2023 SPEC #: [id number] RECD: 03/12/23 08:56 STATUS: MARBELLA AGUAYO #: [id number] SHANIA: 03/12/23 08:[address]: Aaron Duarte DEPT: CYTOLOGY RECD BY: Clarissa Rhodes ENTERED: 03/12/23 10:46 SP TYPE: Fluid OTHR DR: Dr. Janusz Scott DO Tissues: Pleural fluid, NOS Procedures: Special Stain Group II Mucicarmine Stain (control) Surgery Specimen Level IV Cytospin Fluid HEADER OPERATION: Thoracentesis PRE-OP DIAGNOSIS: Left pleural effusion TISSUE SUBMITTED: Thoracentesis fluid for cytology DIAGNOSIS CYTOLOGY Thoracentesis fluid for cytology (cytospin and cell block): Marked acute inflammation. Reactive mesothelial cells. See comment. AM:jacob 03/13/2023 COMMENT Immunohistochemistry ([id number]) supports the above diagnosis. Mucin stain with matched control was used in the evaluation of this case. CYTOLOGY STUDY Slides are reviewed. CYTOLOGY GROSS Received is 90 ml of yellow cloudy fluid labeled with the patient's name and and designated per the requisition as left pleural effusion. Submitted for cytology preparation including cell block. / jacob 03/12/2023 TC:2 CPT: 99176, 68319, 85252
== END | disposition home or self-care (01) ==
PROVIDERS: PCP Student in an Organized Health Care Education/Training Program; Referring Provider Internal Medicine Medical Oncology; Visit Provider Internal Medicine Medical Oncology
DX: C34.32 Malignant neoplasm of lower lobe, left bronchus or lung (principal); J90 Pleural effusion, not elsewhere classified; J98.8 Other specified respiratory disorders
CPT/HCPCS: 32555; 71046; 88108; 88305; 88313; 88341; 88342

== ENCOUNTER 2023-04-05 11:36 | Day surgery (SDC) | payer MEDICARE, SELFPAY ==
[2023-04-05 12:06] VITALS: BP 112/61; PULSE 76; RESP 16; TEMP 36.9; O2SAT 99; BMI 17.2
[2023-04-05] MEDS: Lactated Ringers 1,000 ML 15 ML IV (12:17)
--- NOTE | 2023-04-05 12:58 | HP.PCM_ITS ---
History and Physical Date of Admission: 04/05/23 Intake Vital Signs 03/26/2315:25 04/01/2315:01 Height 5 ft 4 in 5 ft 4 in Weight: 100 lb 7 oz 99 lb BMI 17.2 16.9 BP 132/78 H 127/77 H Blood Pressure Location Rt brachial Rt brachial Position Sitting Sitting Respiration 16 17 Pulse 89 87 Pulse Source Monitor Monitor Temp 98.7 F Pulse Oximetry (%) 93 Oxygen Delivery Method room air Intake Visit Reasons: Port Placement Consult Chief Complaint: port placement Is patient in pain?: No Allergies codeine Allergy (Unknown, Verified 04/01/23 15:01) Other Medications albuterol sulfate 90 mcg/actuation aerosol inhaler 2 puff inhalation Q6H PRN sob 12/15/20 [History Confirmed 04/01/23] tamoxifen 20 mg tablet 20 mg PO DAILY 12/15/20 [History Confirmed 04/01/23] rosuvastatin 10 mg tablet mg 02/18/23 [History Confirmed 04/01/23] ondansetron 8 mg disintegrating tablet 8 mg PO Q8H PRN nausea and vomiting #30 tabs 03/26/23 [Rx Confirmed 04/01/23] PFSH Medical History (Updated 04/01/23 @ 15:00 by Karen Garrison) Aortic valve sclerosis Breast cancer Chest pressure COPD (chronic obstructive pulmonary disease) Encounter for education Mass of right side of neck Mild mitral valve regurgitation Nasal lesion Numbness and tingling in left arm Paronychia Tobacco abuse Surgical History History of mastectomy Family History Father Cancer Lung Brother Cancer LungMother CVA (cerebral vascular accident) Hypertension Social History Smoking Status: Current every day smoker tobacco type: cigarettes Tobacco: How many years used: 53 HPI HPI HPI: Patient is a 77-year-old female here for chest port. Patient requires it for vascular access. She is having her first treatment this Saturday by peripheral IV. ROS General General: Yes weight change, fatigue and breast cancer; No appetite, colon cancer or weakness HEENT HEENT: No difficulty swallowing, eye injury, eye surgery, swollen glands or hoarseness Endo Endocrine: No thyroid disease, diabetes mellitus, thyroid cancer, Hair loss, heat intolerance or cold intolerance Skin Skin: No rash or changing moles Musc Musculoskeletal: Yes back problems; No arthritis, rheumatoid arthritis, gout or joint pain Cardio Cardiovascular: Yes heart disease; No murmur, pacemaker, atrial fibrillation, high blood pressure, heart attack, heart stent, palpitations, shortness of breat with exertion or chest pain Psych Psychiatric: No depression, anxiety or hearing voices Resp Respiratory: Yes shortness of breath, No sleep apnea, No cough, Yes COPD, No asthma, No emphysema and No wheezing Gastro Gastrointestinal: No abdominal pain, No nausea or vomiting, No diarrhea, No constipation, No blood in stool, No acid reflux, No hemorrhoids, No ulcers, No gallbladder problem and No black,tarry stools Haja Hematologic: No blood thinners, No blood disorders, No bleeding, No anemia and No blood clots Neuro Neurologic: No system reviewed and no additional complaints, except as documented, No as per HPI, No abnormal gait, No abnormal hearing, No abnormal movements, No abnormal speech, No behavioral changes, No burning sensations, No confusion, No convulsions, No disequilibrium, No dizziness, No localized weakness, No frequent falls, No headache(s), No lack of coordination, No loss of vision, No memory loss, No numbness, No other visual disturbances, No radicular pain, No restless legs, No sensory deficit, No syncope, No tingling, No tremor(s), No weakness and No other Exam Const General: cooperative Orientation: alert and oriented x3 HENMT Head: normal to inspection Neck Neck: normal visual inspection and full ROM Chest Chest palpation & inspection: normal inspection of the chest Resp Effort & Inspection: normal respiratory effort Auscultation: clear to auscultation bilaterally Cardio Rate: regular rate Rhythm: regular rhythm GI Inspection: non-distended Palpation: soft and nontender Skin General: no rashes or lesions noted Neuro General: patient alert and patient oriented x3 Extrem General: full ROM Psych Appearance: grossly normal Mental Status: mental status grossly normal Assessment and Plan Assessment and Plan (1) Encounter for insertion of venous access port: Status: Acute Plan: I discussed right chest port placement with the patient in detail. I discussed the risks including but not limited to bleeding, infection, injury to other org ans or pneumothorax. Patient understands the risks and is willing to proceed. She will hold her aspirin and Plavix for 5 days. She is having her chemotherapy treatment on Saturday peripherally and then I will place report on Saturday. Sohail Valdez MD Pager: [facility] [address] [place] [address], [address] [place] [phone] Office: I have examined the patient and the H&P has been reviewed. There are no clinical changes since date of exam.
[2023-04-05] MEDS: Cefazolin 2 GM in 0.9% Normal Saline (100mL Bag) 100 ML IV (13:02)
[2023-04-05 13:10] VITALS: BP 106/60; BP 111/61; BP 112/57; BP 113/59; BP 114/64; O2SAT 95; O2SAT 96; O2SAT 97
[2023-04-05] MEDS: Lidocaine 1% (5 ml sdv) 5 ML Vial (13:22)
[2023-04-05] MEDS: Bupivacaine 0.5% PF 10 ML VIAL (13:22)
--- NOTE | 2023-04-05 13:31 | PCM.OPRPT ---
Report of Operation Date of Procedure: 04/05/23 Pre-Operative Diagnosis: Need for vascular access for chemotherapy Post-Operative Diagnosis: Same Surgery/Procedure Performed:: Ultrasound and fluoroscopy guided right chest port placement utilizing right IJ Type of Anesthesia: Local Estimated Blood Loss (mL): 5 Description of Procedure: After obtaining informed consent patient was brought back to the operating room MAC anesthesia was induced and the right chest and neck were prepped in normal sterile fashion. Ultrasound was used to evaluate both IJs and the right IJ was selected. Next, using a needle, the right IJ was accessed and a guidewire was passed on into the superior vena cava under fluoroscopy guidance. A small incision was made over the puncture site and the dilator introducer was placed over the guidewire. Next this was capped and the pocket was made for the port. 1% lidocaine with epinephrine was injected in the proposed port site. An incision was made with scalpel. Electrocautery was used to make a pocket under the skin and subcutaneous tissue. Hemostasis was obtained. Next, the catheter was tunneled up to the neck incision site and placed through the introducer. The peel-away introducer was removed and the position of the catheter was confirmed on fluoroscopy. Next, the catheter was trimmed and attached to the port with the locking device. Interrupted 2-0 Vicryl sutures were used to anchor the port to the chest wall and then the port was placed inside the pocket. The pocket was then flushed with saline and the port irrigated with saline. There was good blood return and the port flushed easily. Next, heparin was injected into the port. The skin was closed with subcutaneous interrupted 3-0 Vicryl sutures. A single 3-0 Vicryl sutures placed under the skin at the neck incision site. Steri-Strips were placed as well as op sites. Patient tolerated procedure well, was taken to PACU in stable condition. Chest x-ray will be obtained. Grafts/Implants Used: 8 Gambian power port Admit VTE Documentation VTE Mechan Device Prophylaxis: SCD's
--- NOTE | 2023-04-05 13:32 | DCINST_ITS ---
Discharge Instructions Procedure Port-A-Cath Diet Discharge Diet: Light diet - advance as tolerated (Pain medication may cause nausea. You should typically eat light foods as you take your pain medication.) Activity Discharge Activity: Return to Normal Activity and May Shower (with your bandage in place in 1-2 days after surgery. DO NOT SHOWER WHEN YOUR PORT IS ACCESSED.) Lifting Restrictions: No heavy exertional activity today or tomorrow Dressing / Incision Call your doctor if your incision/area has: Continuous Slow Oozing, Sudden Increased Bleeding, Increased Pain/ Swelling, Increased Redness and Foul Smelling Discharge Call your doctor if you observe: Fever of 101 or Higher Remove Dressing in: 2 days Cleanse incision/area with: Soap & Water Follow Up Care Please Follow Up With: Sohail Valdez MD When: as needed [phone] Test Results: Test results from this visit will be discussed in further detail at your follow- up appointment, if applicable. Discharge Plan Admission Attending Provider: Sohail Valdez Primary Care Provider: Janusz Scott Instructions Additional Instructions / Restrictions: Alternate ibuprofen and Tylenol for pain Discharge Orders/Prescriptions Prescriptions: No Action tamoxifen 20 mg tablet 20 mg PO DAILY albuterol sulfate 90 mcg/actuation HFA aerosol inhaler 2 puff inhalation Q6H PRN (Reason: sob) ondansetron 8 mg tablet,disintegrating 8 mg PO Q8H PRN (Reason: nausea and vomiting) Qty: 30 2RF rosuvastatin 10 mg tablet 10 mg PO QHS Patient Comments: TAKE 1 TABLET BY MOUTH AT BEDTIME Referrals / Follow Up: Janusz Scott DO [Primary Care Provider] - Disposition Disposition (needs filled in before D/C Order can be placed): Home, Self Care
--- NOTE | 2023-04-05 13:45 | RAD_ITS ---
STUDY: X-RAY CHEST REASON FOR EXAM: Female, 77 years old. Line placement -- in AC room 10 TECHNIQUE: Single AP portable view of the chest. COMPARISON: Comparison is made with prior study dated March 12, 2023. FINDINGS: A right-sided Port-A-Cath has been placed with tip at the junction of the superior vena cava and right atrium. Hyperinflation. There is no demonstrated pleural abnormality. Normal size heart. Normal mediastinum and isaac. Normal visualized pulmonary arteries. There is atherosclerotic calcification of the aortic arch with tortuosity. There are degenerative changes of the visualized thoracic spine. Normal visualized ribs, clavicles, and shoulders. There is no demonstrated abnormality of the visualized soft tissue structures of the upper abdomen. RAD/CXR for Line Placement IMPRESSION: Hyperinflation. The tip of the right-sided mars catheter is at the junction of the superior vena cava and right atrium. Electronically Signed: Andrey Pérez MD at 14:21 EST ,
[2023-04-05] MEDS: Acetaminophen 325 MG Tablet 650 MG PO (14:03)
[2023-04-09 20:08] LABS: Bedside Glucose 289 mg/dL (74-106)
== END 2023-04-05 14:42 | disposition home or self-care (01) ==
LOC: SDC 11:36 → AC 11:37
PROVIDERS: PCP Student in an Organized Health Care Education/Training Program; Referring Provider Surgery; Visit Provider Surgery
PROC: (CPT 36561; principal; 2023-04-05 13:05)
DX: Z45.2 Encounter for adjustment and management of vascular access device (principal); C34.32 Malignant neoplasm of lower lobe, left bronchus or lung; J44.9 Chronic obstructive pulmonary disease, unspecified; F17.210 Nicotine dependence, cigarettes, uncomplicated; Z79.82 Long term (current) use of aspirin; Z79.02 Long term (current) use of antithrombotics/antiplatelets; Z79.899 Other long term (current) drug therapy
CPT/HCPCS: 36561; 00532; 71045; 77001; 82962; J7120; C1788; J2405

== ENCOUNTER → 2023-04-16 | Outpatient (CLI) | payer MEDICARE, SELFPAY ==
--- NOTE | 2023-04-16 12:27 | MRI_ITS ---
EXAM: MR brain with and without contrast. HISTORY: NSCLC- staging TECHNIQUE: MR Brain WO/W Contrast COMPARISON: None. LIMITATIONS: None. BRAIN: Normal longo/white matter differentiation. No diffusion abnormalities. No enhancing lesions identified. VENTRICLES: No hydrocephalus. EXTRA-AXIAL SPACES: No hemorrhages, fluid collections, or masses. CALVARIUM/SKULL BASE: Normal. FACE/SINUSES: Visualized portions normal. SOFT TISSUES: Normal. OTHER: None. CONCLUSION: No evidence of metastatic disease. Electronically Signed: Krishan Calixto MD at 2:24 EST , MRI/Brain W/WO Contrast IMPRESSION: undefined
[2023-04-16] MEDS: 0.9 % NaCl (Sterile) Posiflush 10 mL IV (13:21)
== END | disposition home or self-care (01) ==
PROVIDERS: PCP Student in an Organized Health Care Education/Training Program; Referring Provider Nurse Practitioner Family; Visit Provider Nurse Practitioner Family
DX: C34.32 Malignant neoplasm of lower lobe, left bronchus or lung (principal)
CPT/HCPCS: 70553; A9575; A4216

== ENCOUNTER → 2023-06-07 | Outpatient (CLI) | payer MEDICARE, SELFPAY ==
--- NOTE | 2023-06-07 13:40 | CT_ITS ---
STUDY: CT CHEST T ABDOMEN WITH CONTRAST REASON FOR EXAM: Female, 77 years old. LUNG CA-IV ONLY. Follow-up. RADIATION DOSAGE (If Supplied By Facility): CTDIvol = ( 7.52 ) mGy, DLP = ( 392.07 ) mGycm TECHNIQUE: Transaxial imaging was performed following intravenous administration of IV 100mL Isovue-300. Multiplanar coronal and sagittal images were reformatted. Individualized dose optimization techniques were used for this CT. COMPARISON: Comparison is made with prior study dated January 05, 2023. FINDINGS: CHEST A right-sided mars catheter seen with the tip in the superior vena cava. Hyperinflation. Stable mild degree of emphysematous changes. Stable scarring at the lung apices. The previously seen spiculated nodule in the medial aspect of the left lower lobe has almost completely resolved. Minimal changes persist. New focal areas of the irregular density seen along the anterior medial aspect of the right middle lobe and lingular segment of the left upper lobe. These may represent areas of scarring. Correlation with a PET scan is recommended. There is no demonstrated pleural abnormality. There are calcifications of the coronary arteries. Normal mediastinum. Normal hilar regions. Normal unenhanced pulmonary arteries. There is atherosclerotic calcification of the aortic arch with tortuosity and elongation of the aortic arch and descending thoracic aorta. There are multi-level degenerative changes of the thoracic spine. Increased kyphosis. ABDOMEN There is a 1.1 cm well-defined nodule in the posterior aspect of the right lobe of the liver as seen on axial image #17 through 20 with peripheral calcification. There is a 1.1 cm cyst in the medial inferior aspect of the right lobe of the liver. Normal gallbladder and extrahepatic biliary system. Normal spleen. Normal pancreas. Normal bilateral adrenal glands. Normal right kidney. Normal left kidney. Normal visualized stomach. Normal small intestine. There are multiple colonic diverticula consistent with diverticulosis. There is diffuse atherosclerotic calcification of the abdominal aorta, without a demonstrated aneurysm. Normal inferior vena cava. Normal retroperitoneum. Normal abdominal wall. There are diffuse degenerative changes of the visualized lumbar spine. CT/CT Chest AND Abd W/ Contrast IMPRESSION: Interval decrease in size of the previously seen nodule along the medial aspect of the left lower lobe. New focal areas of irregular density seen along the anterior medial aspect of the right middle lobe and lingular segment of the left upper lobe suggests of scarring. Correlation with a PET scan recommended. Electronically Signed: Andrey Pérez MD at 14:34 EST ,
[2023-06-07] MEDS: 0.9% Saline Lock 10 ML Syringe IV (14:00)
== END | disposition home or self-care (01) ==
LOC: CT 13:40
PROVIDERS: PCP Student in an Organized Health Care Education/Training Program; Referring Provider Internal Medicine Medical Oncology; Visit Provider Internal Medicine Medical Oncology
DX: C34.32 Malignant neoplasm of lower lobe, left bronchus or lung (principal)
CPT/HCPCS: 71260; 74160; Q9967; A4216

== ENCOUNTER → 2024-06-07 | Outpatient (CLI) | payer MEDICARE, SELFPAY ==
--- NOTE | 2024-06-07 08:41 | MRI_ITS ---
PROCEDURE: BRAIN W/WO CONTRAST REASON FOR EXAM: Metastatic bup-fcdwt-cuvb lung cancer upper extremity weakness rule out brain metastasis TECHNIQUE: Multiplanar, multisequence MRI of the brain with and without intravenous gadolinium-based contrast. COMPARISON: 04/16/2023 FINDINGS: No evidence of acute ischemia or mass lesion.No intracranial hemorrhage. No abnormal enhancement. The ventricles and sulci are normal in appearance.No extra-axial collection or midline shift. The posterior fossa structures are within normal limits. The orbits and paranasal sinuses are unremarkable.The calvarium and soft tissues are unremarkable. MRI/Brain W/WO Contrast IMPRESSION: 1. No acute ischemia. 2. No evidence of intracranial metastatic disease. Reading Location: [facility]
--- NOTE | 2024-06-07 08:41 | MRI_ITS ---
PROCEDURE: SPINE CERVICAL W/WO CONTRAST REASON FOR EXAM: Upper extremity weakness: Exk-wyrma-ldmt lung cancer TECHNIQUE: Cervical spine MRI without and with intravenous gadolinium-based contrast. COMPARISON: MRI of the brain from the same day FINDINGS: Vertebrae: Cervical vertebral body heights are preserved. Modic type 1 changes are present of the posterior inferior C5 with posterior spurring with adjacent T1 hypointensity, T2 hyperintensity and mild enhancement. Alignment: There is a slight anterolisthesis of C3 on C4. Spinal Cord: Cervical spinal cord is of normal size and signal intensities. Structures at the foramen magnum are unremarkable. C2-3: Unremarkable C3-4: Left-sided degenerative facet disease is contributing to mild left neural foraminal stenosis. There is a slight anterolisthesis of C3 on C4. C4-5: Unremarkable C5-6: Moderate degenerative disc disease is present with a mild diffuse posterior disc bulge bilateral uncovertebral and facet hypertrophy. There is mild spinal canal stenosis and moderate bilateral neural foraminal stenosis. Ligamentum flavum hypertrophy is also noted at this level. C6-7: Unremarkable C7-T1: Unremarkable Postcontrast images: No suspicious contrast enhancement. MRI/Spine Cervical W/WO Contrast IMPRESSION: 1. No acute abnormality or abnormal enhancement. 2. Moderate degenerative changes present at C5-6 with Modic type 1 changes at p osterior aspect of the inferior endplate C5. Otherwise, mild multilevel degenerative changes are present. 3. Slight anterolisthesis of C3 on C4. Reading Location: [facility]
== END | disposition home or self-care (01) ==
LOC: MRI 06-08 10:11
PROVIDERS: PCP Student in an Organized Health Care Education/Training Program; Referring Provider Nurse Practitioner Family; Visit Provider Nurse Practitioner Family
DX: R29.898 Other symptoms and signs involving the musculoskeletal system (principal); C78.00 Secondary malignant neoplasm of unspecified lung; C34.32 Malignant neoplasm of lower lobe, left bronchus or lung
CPT/HCPCS: 70553; 72156

== ENCOUNTER → 2024-06-09 | Outpatient (CLI) | payer MEDICARE, SELFPAY ==
--- NOTE | 2024-06-09 07:32 | CT_ITS ---
PROCEDURE: CT CHEST, ABD, PEL W/CONTRAST REASON FOR EXAM: Follow-up for fbh-jvfre-wjfp lung cancer. TECHNIQUE: Chest, abdomen and pelvis CT with intravenous contrast. CONTRAST: 100 cc of Isovue-300. COMPARISON: Comparison is made with prior study dated June 07, 2023. FINDINGS: CT CHEST: Hardware: A right-sided port a catheter is seen with the tip in the superior vena cava. Lymph nodes: No mediastinal hilar or axillary lymphadenopathy. Heart and Vasculature: Normal heart size. No pericardial effusion. Thoracic aorta and pulmonary arteries are unremarkable. Coronary artery calcification. Lungs and Airways: Once again, there is evidence of emphysematous changes. Stable scarring at the lung apices worse on the left side with evidence of bronchiectasis. Wedge-shaped density is seen in the posterior lateral aspect of the right lower lobe. This is new as compared to prior study. This most likely represents an area of scarring. Pleura: There is a new small left pleural effusion with left basilar atelectasis. Bones: Degenerative changes of the thoracic spine. Increased kyphosis. CT ABDOMEN/PELVIS: Liver: Stable 1.1 cm well-defined solid nodule in the posterior aspect of the right lobe of the liver as seen on prior study. Small cyst is also seen in the medial aspect of the right lobe. Gallbladder: Unremarkable. Spleen: Unremarkable. Pancreas: Unremarkable. Adrenals: Unremarkable. Kidneys: Unremarkable. Bladder: Unremarkable. Reproductive Organs: Unremarkable. Bowel: Unremarkable. Appendix: Normal. Lymph nodes: No suspicious lymph node enlargement. Vasculature: Mild diffuse atherosclerotic calcifications are noted. Peritoneum / Retroperitoneum: No ascites. No free air. Bones: Degenerative changes of the spine. CT/CT Chest, Abd, Pel w/Contrast IMPRESSION: Essentially stable examination except for new left pleural effusion and possibl e focal scarring in the peripheral aspect of the right lower lobe. One or more dose reduction techniques were used (e.g., Automated exposure contr ol, adjustment of the mA and/or kV according to patient size, use of iterative reconstruction technique). Reading Location: [facility]
[2024-06-09] MEDS: 0.9% Saline Lock 10 ML Syringe IV (07:50)
== END | disposition home or self-care (01) ==
PROVIDERS: PCP Student in an Organized Health Care Education/Training Program; Referring Provider Nurse Practitioner Family; Visit Provider Nurse Practitioner Family
DX: C34.32 Malignant neoplasm of lower lobe, left bronchus or lung (principal); C78.00 Secondary malignant neoplasm of unspecified lung
CPT/HCPCS: 71260; 74177; Q9967

== ENCOUNTER 2024-06-24 13:54 | Inpatient (IN) | payer MEDICARE, SELFPAY ==
[2024-06-24 13:55] VITALS: BP 84/48; PULSE 87; RESP 18; TEMP 36.6; O2SAT 98
[2024-06-24 14:29] LABS: Absolute Lymphocyte Count 1.41 X10^3/uL (0.83-4.51); Absolute Neutrophil Count 2.7 X10^3/uL (2.0-7.7); Basophil# 0.03 X10^3/uL; Basophil% 0.6 % (0-1); Eosinophil# 0.12 X10^3/uL; Eosinophils% 2.3 % (0-5); Hematocrit 26.8 % (37-47); Hemoglobin 8.5 g/dL (12.0-15.0); Lymphocyte # 1.41 X10^3/ul (0.83-4.51); Lymphocyte % 26.5 % (19-41); Mean Corp Hgb Conc 31.7 g/dL (32-36); Mean Corpuscular Hgb 30.2 pg (27.0-32.0); Mean Corpuscular Volume 95.4 fL (81-99); Mean Platelet Vol. 11.4 fl (6.2-12.0); Monocyte# 1.01 X10^3/uL; NRBC Flagged by Analyzer 0 % (0-5); Neutrophil # 2.74 X10^3/uL (2.7-7.7); Neutrophil % 51.4 % (47-70); Platelet Count 286 K/mm3 (150-450); RBC Distribution Width CV 13.1 % (11.6-14.6); RBC Distribution Width SD 45.9 fl (35.1-43.9); Red Blood Count 2.81 M/mm3 (4.2-5.4); White Blood Count 5.3 K/mm3 (4.4-11.0)
[2024-06-24 15:00] LABS: Anion Gap 8 (5-15); BUN 15 mg/dL (4-19); BUN/Creat Ratio 28.4 RATIO (10-20); Calcium 8.7 mg/dL (7.6-11.0); Chloride 98 mmol/L (96-108); Creatinine, Serum 0.5 mg/dL (0.6-1.0); EST Glomerular Filtration Rate 97 (>60); Glucose 133 mg/dL (70-99); Potassium 3.9 mmol/L (3.3-5.1); Sodium Level 134 mmol/L (133-145)
[2024-06-24 15:36] LABS: Troponin T High Sensitivity 8 ng/L (<=14)
[2024-06-24 16:42] LABS: TROPONIN VARIANCE 2 HR 2; Troponin T High Sens 2 HR 10 ng/L (<=14)
[2024-06-24 16:46] VITALS: BP 110/63; PULSE 78; O2SAT 92; O2SAT 93; BMI 20.7
--- NOTE | 2024-06-24 17:28 | EKG12_ITS ---
Test Reason : ARRYTH Blood Pressure : */* mmHG Vent. Rate : 73 BPM Atrial Rate : 73 BPM P-R Int : 196 ms QRS Dur : 84 ms QT Int : 378 ms P-R-T Axes : 34 93 69 degrees QTcB Int : 416 ms Sinus rhythm with marked sinus arrhythmia OTHERWISE NORMAL Confirmed by Donovan Morgan ([id number]), international editorial producer ALLISON MOE ([id number]) on 06/25/2024 9:38:06 AM Referred By: MACKENZIE Confirmed By: Donovan Morgan
--- NOTE | 2024-06-24 17:29 | EX.ED.DYSGE1 ---
HPI History of Present Illness Chief Complaint: Edema Detail of Chief Complaint: Black stool reportedly per patient and anemic Informant: patient Onset/Context/Timing Onset: Days Context: Gradual Onset Timing: Continuous Current Severity: Mild Maximum Severity: Mild Narrative Narrative: 78-year-old female history of lung cancer, COPD, breast cancer on Eliquis of her prior left lower extremity DVT denies any prior history of GI bleed. Reportedly has had dark stool. She was seen by the nurse practitioner for oncology today. Her blood counts have been dropping they are concerned she has a GI bleed. She also has swelling in her bilateral lower extremities. Denies any chest pain. Prior similar symptoms: No Recent Illness/Hospitalization: No PFSH PFSH Medical History Bilateral lower extremity edema Metastasis to lung Upper extremity weakness DVT, lower extremity Dehydration Fatigue Wears glasses Wears dentures Post-menopausal Cancer High cholesterol Back pain Osteoporosis Smoker Asthma Shortness of breath on exertion Chronic cough Leg cramps History of echocardiogram History of stress test Cardiology follow-up encounter History of arm fracture Encounter for education Nasal lesion Mild mitral valve regurgitation Chest pressure Breast cancer Aortic valve sclerosis COPD (chronic obstructive pulmonary disease) Tobacco abuse Paronychia Numbness and tingling in left arm Mass of right side of neck Home Medications ?Medication ?Instructions ?Recorded ?Last Taken ?Type albuterol sulfate 90 mcg/actuation 2 puff inhalation Q6H PRN sob 12/15/20 Unknown History aerosol inhaler ondansetron 8 mg disintegrating 8 mg PO Q8H PRN nausea and 03/26/23 Unknown Rx tablet vomiting #30 tabs docusate sodium 100 mg capsule 100 mg PO BID PRN constipation 05/08/23 Unknown History (Colace) apixaban 5 mg tablet (Eliquis) 5 mg PO BID 04/01/24 Unknown History rosuvastatin 10 mg tablet 10 mg PO QDAY 04/01/24 Unknown History Allergy/AdvReac Type Severity Reaction Status Date / Time codeine Allergy Unknown Other Verified 06/03/24 13:04 Family History Father Cancer Lung Brother Cancer Lung Mother CVA (cerebral vascular accident) Hypertension Surgical History Hx of colonoscopy History of mastectomy Social History Smoking Status: Current every day smoker tobacco type: cigarettes Tobacco: How many years used: 53 ROS ROS ED ROS Narrative Black stool. Shortness of breath. Lower extremity swelling bilaterally. Constitutional Constitutional ED: Denies chills or fever(s) Eyes Eyes: Denies blurry vision ENT ENT ED: Denies ear pain Cardiovascular Cardiovascular: Denies chest pain Respiratory/Chest Respiratory/Chest: Reports dyspnea; Denies cough Gastrointestinal Gastrointestinal: Reports melena; Denies abdominal pain, constipation, diarrhea, nausea or vomiting Genitourinary Genitourinary ED: Denies dysuria or hematuria Musculoskeletal Musculoskeletal: Denies arthralgias Integumentary Denies abscess Neurologic Neurologic: Denies headache(s) Psychiatric Psychiatric: Denies anxiety Endocrine Endocrinology: Denies cold intolerance Hematologic/Lymphatic Hematologic/Lymphatic: Reports none Allergic/Immunologic Allergic/Immunologic ED: Denies mouth swelling, tongue swelling or urticaria EXAM Physical Exam Narrative Exam Narrative: 78-year-old female no acute distress initially blood pressure 8448 on my exam she is 110/63. She does not look septic toxic. Initial pulse ox is 98% on room air. She is lying in bed comfortably. Family member in the room. H EENT exam pupils round react light. Mytrex membranes. Neck nontender no JVD. Lungs clear to auscultation bilaterally. Heart regular rhythm rate about 80 no murmur. Chest wall ribs nontender. Abdomen soft nontender. Rectal exam done female friend present in the room with brown stool there is no black there is not enough to Hemoccult at this time. No mass. Moving all 4 extremities. 1+ pitting edema both lower extremities. Neurologically she is awake and alert no focal motor deficits. Answering questions and following commands. Const Vital Signs: 06/24/24 13:55 06/24/24 16:46 06/24/24 16:46 Temperature 97.9 F Temperature Source Temporal Pulse Rate 87 78 Respiratory Rate 18 Blood Pressure 84/48 L 110/63 Blood Pressure Mean 60 78 Pulse Ox 98 93 92 Oxygen Delivery Method Room Air Room Air Room Air Positive well nourished and well developed; Negative for cachectic, contractures or unkempt General Appearance ED: well developed, NAD and pallor; Negative for unkempt, cachectic, contractures, cyanotic or diaphoretic Nutritional Appearance: Negative for cachectic HEENT Reports moist mucous membranes Negative for trauma or tenderness Eyes PERRL and EOMs intact bilaterally General Eye ED: Yes pale conjunctiva; Negative for scleral icterus Neck no lymphadenopathy, supple and no JVD Chest Wall inspection of chest normal and palpation of chest normal Resp normal respiratory effort and clear to auscultation bilaterally Cardio regular rate, regular rhythm, S1 normal heart sound, S2 normal heart sound and no murmurs GI normal to inspection, nondistended, normoactive bowel sounds, non-tender, non-distended and no masses Palpation: soft; Negative for tender or guarding Back/Spine no CVA tenderness General Back: Negative for CVA tenderness Cervical Spine: Negative for cervical spine tenderness Thoracic Spine / Upper Back: Negative for thoracic spinal tenderness Lumbar Spine / Lower Back: Negative for lumbar spinal tenderness Extremity Negative for normal to inspection Extremity Narrative: Bilateral lower extremity 1+ pitting edema. No cords. Nontender. General Extremety ED: Yes edema General Extremity: edema Neuro oriented x3 and CN's II-XII intact bilaterally Sensorium / Orientation: alert; Negative for orientation impaired, lethargic or stuporous Motor Exam: strength 5/5 throughout Psych mental status grossly normal Appearance: Negative for unkempt Attitude: No agitated Mood & Affect: Negative for anxious or tearful Skin no rashes or lesions noted and no wounds General Skin Exam: pallor; Negative for jaundice Lesions: No lesion noted Rashes: No rashes noted Trauma: Negative for abrasion Wounds: Negative for wounds noted MDM MDM MDM Narrative Medical decision making narrative: 78-year-old female anemia rule out lower GI bleed. rectal exam grossly negative. Screening labs. Type and screen and type and cross. Hold at this time her hemoglobin is 8.5. Repeat exam at 6:07 PM unchanged. Spoke to the hospitalist she will be admitted. History & Record Review Discussion w/independent historian: Patient Additional record(s) reviewed:: Prior inpatient record, Prior outpatient record and Prior ED visit Lab Data Attestation: I reviewed the patient's lab results. Lab results narrative: CBC shows a white count of 5. H&H 8.5 and 26.8 previously her hemoglobin was around 10. Platelets 286. Electrolytes show a gap of 8. BUN and creatinine of 15 and 0.5. Glucose 133. Troponins negative. Labs: Laboratory Results - last 24 hr 06/24/24 06/24/24 14:08 16:10 WBC 5.3 RBC 2.81 L Hgb 8.5 L Hct 26.8 L MCV 95.4 MCH 30.2 MCHC 31.7 L RDW Std Deviation 45.9 H RDW Coeff of Ngoc 13.1 Plt Count 286 MPV 11.4 Immature Gran % (Auto) 0.200 Neut % (Auto) 51.4 Lymph % (Auto) 26.5 [place] % (Auto) 19.0 H Eos % (Auto) 2.3 Baso % (Auto) 0.6 Absolute Neuts (auto) 2.7 Absolute Lymphs (auto) 1.41 Nucleated RBC % 0 Sodium 134 Potassium 3.9 Chloride Direct 98 Carbon Dioxide 27.0 Anion Gap 8 BUN 15 Creatinine 0.5 L Est GFR (MDRD) Non-Af 97 BUN/Creatinine Ratio 28.4 H Glucose 133 H Calcium 8.7 Troponin T High Sens 8 Troponin T Hi Sens 2 Hr 10 Troponin T Hi Sens 2Hr Delta 2 Radiography Chest X-Ray - ED: 1 View, Read by ED Physician, Normal, Heart, Lungs, Mediastinum, Bony Structures, No Acute Disease and Chronic Changes Diagnostic Testing: Chest x-ray, portable, single view shows normal cardiac silhouette. Chronic lung changes consistent with COPD. Right med port. No acute process. Rhythm Strip Rhythm Strip: Sinus Rhythm Rate: 73 Ectopy: None EKG Initial EKG: Attestation: I personally reviewed and interpreted this EKG as follows: Interpretation: Sinus Rhythm and No Acute Injury Pattern Comments: Normal sinus rhythm rate 73. Discharge Plan Dx/Rx/DC Orders Clinical Impression: Anemia, Edema, peripheral, Chronic anticoagulation, Acute GI bleeding, History of lung cancer, History of chemotherapy Disposition Disposition: Acute Care Hospital [facility]
--- NOTE | 2024-06-24 17:51 | RAD_ITS ---
PROCEDURE: CHEST 1 VIEW (PORTABLE) REASON FOR EXAM: 78-year-old female, edema. TECHNIQUE: Frontal view of the chest. COMPARISON: CT chest, abdomen and pelvis 06/09/2024, chest radiograph 04/05/2023. FINDINGS: Stable right IJ port with tip overlying the SVC. The heart size is normal. Calcific plaque of the thoracic aorta. Stable findings of severe emphysema. Small right pleural effusion. No obvious pneumothorax. Degenerative changes are identified within the thoracic spine. RAD/Chest 1 View (Portable) IMPRESSION: 1. Development of small right pleural effusion. 2. Stable findings of severe emphysema. Reading Location: [id number]
[2024-06-24 18:00] VITALS: BP 109/56; PULSE 85; O2SAT 92
--- NOTE | 2024-06-24 18:16 | ED.RN ---
per. dr olivia 4 hr trop not necessary
--- NOTE | 2024-06-24 18:24 | HP.PCM.HOS_ITS ---
[facility] - General General Date of Service: 06/24/24 Chief Complaint: Melena HPI Narrative SUNSHINE SHELL, is a 78 F who presents with reports of intermittent melena. Patient saw to her at the oncology office and had reported that she has been having intermittent melena patient was sent to the emergency room. It was noted that her hemoglobin was 8.5 which was down from June 03 at 10.2. Hemoccult in emergency room was negative. The ED physician spoke with . Nicci of gastroenterology would be willing to see the patient in consultation. Patient is on apixaban for lower extremity DVT. [facility] Medical History Bilateral lower extremity edema Metastasis to lung Upper extremity weakness DVT, lower extremity Dehydration Fatigue Wears glasses Wears dentures Post-menopausal Cancer High cholesterol Back pain Osteoporosis Smoker Asthma Shortness of breath on exertion Chronic cough Leg cramps History of echocardiogram History of stress test Cardiology follow-up encounter History of arm fracture Encounter for education Nasal lesion Mild mitral valve regurgitation Chest pressure Breast cancer Aortic valve sclerosis COPD (chronic obstructive pulmonary disease) Tobacco abuse Paronychia Numbness and tingling in left arm Mass of right side of neck Home Medications ?Medication ?Instructions ?Recorded ?Last Taken ?Type albuterol sulfate 90 mcg/actuation 2 puff inhalation Q 6H PRN sob 12/15/20 Unknown History aerosol inhaler ondansetron 8 mg disintegrating 8 mg PO Q8H PRN nausea and 03/26/23 Unknown Rx tablet vomiting #30 tabs docusate sodium 100 mg capsule 100 mg PO BID PRN const ipation 05/08/23 Unknown History (Colace) apixaban 5 mg tablet (Eliquis) 5 mg PO BID 04/01/24 Un known History rosuvastatin 10 mg tablet 10 mg PO QDAY 04/01/24 Unkno wn History Allergy/AdvReac Type Severity Reaction Status Date / Time codeine Allergy Unknown Other Verified 06/03/24 13:04 Family History Father Cancer Lung Brother Cancer Lung Mother CVA (cerebral vascular accident) Hypertension Surgical History Hx of colonoscopy History of mastectomy Social History Smoking Status: Current every day smoker tobacco type: cigarettes Tobacco: How many years used: 53 ROS ROS Narrative Chronic lower extremity edema. Denies any abdominal pain. No nausea vomiting. Denies any epistaxis or any other bleeding problems. Denies easy bruising. All review of systems were negative except as mentioned above in the history of present illness and the other review of systems. Vital Signs Vital Signs Vital Signs: 06/24/24 13:55 06/24/24 16:46 06/24/24 16:46 Temperature 36.6 C Temperature Source Temporal Pulse Rate 87 78 Respiratory Rate 18 Blood Pressure 84/48 L 110/63 Blood Pressure Mean 60 78 Pulse Ox 98 93 92 Oxygen Delivery Method Room Air Room Air Room Air 06/24/24 18:00 Temperature Temperature Source Pulse Rate 85 Respiratory Rate Blood Pressure 109/56 L Blood Pressure Mean 73 Pulse Ox 92 Oxygen Delivery Method Weight Weight: 54.9 kg Body Mass Index (BMI) 20.7 Physical Exam Const alert and no apparent distress Constitutional Narrative: Cachectic. Temporal wasting. Chronic clavicles. Nontoxic. HEENT normocephalic Resp normal respiratory effort, no retractions, no use of accessory muscles and clear to auscultation bilaterally Cardio regular rate, regular rhythm, S1 normal heart sound and S2 normal heart sound GI normal to inspection, nondistended, normoactive bowel sounds, soft to palpation, non-tender and non-distended Extremity Extremity Narrative: Bilateral lower extremity edema with venous stasis changes. Results Lab / Micro Data 06/24/24 14:08 06/24/24 14:08 Labs: Laboratory Results - last 24 hr 06/24/24 14:08: WBC 5.3, RBC 2.81 L, Hgb 8.5 L, Hct 26.8 L, MCV 95.4, MCH 30.2, MCHC 31.7 L, RDW Std Deviation 45.9 H, RDW Coeff of Ngoc 13.1, Plt Count 286, MPV 11.4, Immature Gran % (Auto) 0.200, Neut % (Auto) 51.4, Lymph % (Auto) 26.5, M sowmya % (Auto) 19.0 H, Eos % (Auto) 2.3, Baso % (Auto) 0.6, Absolute Neuts (auto) 2.7, Absolute Lymphs (auto) 1.41, Nucleated RBC % 0, Sodium 134, Potassium 3.9, Chloride Direct 98, Carbon Dioxide 27.0, Anion Gap 8, BUN 15, Creatinine 0.5 L, Est GFR (MDRD) Non-Af 97, BUN/Creatinine Ratio 28.4 H, Glucose 133 H, Calcium 8.7, Troponin T High Sens 8 06/24/24 16:10: Troponin T Hi Sens 2 Hr 10, Troponin T Hi Sens 2Hr Delta 2 06/24/24 17:49: Crossmatch See Detail Rhythm Strip Rhythm Strip: Sinus Rhythm Rate: 73 Ectopy: None Imaging Radiology Impression Chest X-Ray 06/24/24 17:51 IMPRESSION: 1. Development of small right pleural effusion. 2. Stable findings of severe emphysema. Reading Location: [facility] Assessment & Plan Assessment/Plan (1) Melena: PLAN: Not active at present but very concerning the patient is having intermittent melena complicated by her being on apixaban Gastroenterology has been contacted by the emergency room will be on consultation. Patient may have clear diet with n.p.o. after midnight with anticipation of having at least an upper endoscopy hopefully on the . I will start her on IV pantoprazole because she does have peptic ulcer disease. Hold apixaban for now (2) Anemia: PLAN: Suspect acute as her hemoglobin has dropped from 10.2-8.5 this month. Will monitor and reevaluate in the morning. No indication to transfuse at this time. PLAN: Plan Chronic conditions * VTE: Apixaban on hold given the anemia. * Lung cancer, non-small cell. Patient on Keytruda. Follow-up with oncology as outpatient * Lower extremity edema: Chronic for the patient.No prior echo is available in our system VTE prophylaxis with SCDs CODE STATUS: Addressed with the patient. Patient said that she would want CPR but would never want to go onto the ventilator. Told her that very rarely if someone survives cardiac arrest RNA not on a ventilator. I told her that she should either be full code or DNR Comfort Care arrest no intubation. She chose the latter. I told her that she can change her mind at any time just to let us know. Charges/Coding Visit Charges Inpatient E&M: 36829 Init Hosp L2
--- NOTE | 2024-06-24 18:53 | EX.PCM.CON.G ---
HPI Consult Data Date of Consult: 06/24/24 HPI Narrative Reason for Consultation: GI bleed HPI Narrative: SUNSHINE HSELL, is a 78 F who presents with reports of intermittent melena. Patient saw to her at the oncology office and had reported that she has been having intermittent melena patient was sent to the emergency room. It was noted that her hemoglobin was 8.5 which was down from June 03 at 10.2. [facility] Medical History Bilateral lower extremity edema Metastasis to lung Upper extremity weakness DVT, lower extremity Dehydration Fatigue Wears glasses Wears dentures Post-menopausal Cancer High cholesterol Back pain Osteoporosis Smoker Asthma Shortness of breath on exertion Chronic cough Leg cramps History of echocardiogram History of stress test Cardiology follow-up encounter History of arm fracture Encounter for education Nasal lesion Mild mitral valve regurgitation Chest pressure Breast cancer Aortic valve sclerosis COPD (chronic obstructive pulmonary disease) Tobacco abuse Paronychia Numbness and tingling in left arm Mass of right side of neck Home Medications ?Medication ?Instructions ?Recorded ?Last Taken ?Type albuterol sulfate 90 mcg/actuation 2 puff inhalation Q6H PRN sob 12/15/20 06/23/24 History aerosol inhaler ondansetron 8 mg disintegrating 8 mg PO Q8H PRN nausea and 03/26/23 Unknown Rx tablet vomiting #30 tabs docusate sodium 100 mg capsule 100 mg PO BID PRN constipation 05/08/23 06/22/24 History (Colace) apixaban 5 mg tablet (Eliquis) 5 mg PO BID blood thinner 04/01/24 06/24/24 08:00 History rosuvastatin 10 mg tablet 10 mg PO QDAY Cholesterol 04/01/24 06/23/24 22:00 History Allergy/AdvReac Type Severity Reaction Status Date / Time codeine Allergy Unknown Other Verified 06/24/24 20:13 Family History Father Cancer Lung Brother Cancer Lung Mother CVA (cerebral vascular accident) Hypertension Surgical History Hx of colonoscopy History of mastectomy Social History Smoking Status: Current every day smoker tobacco type: cigarettes Tobacco: How many years used: 53 ROS Constitutional Constitutional: Denies fatigue, fever(s), poor appetite, weight gain or weight loss Gastrointestinal Gastrointestinal: Denies belching, bloating, change in bowel habits, change in stool character, chewing difficulty, coffee ground emesis, constipation, cramping, diarrhea, dyspepsia, dysphagia, early satiety, excessive flatus, fecal incontinence, heartburn, hematemesis, hematochezia, hemorrhoids, loose stools, melena, nausea, odynophagia, rectal bleeding, tenesmus, vomiting or weight changes Physical Exam Const alert, oriented x3, no apparent distress and healthy appearing General Appearance: cooperative GI normal to inspection, nondistended, normoactive bowel sounds, soft to palpation, non-tender and non-distended Percussion: normal to percussion Rectal Exam: deferred Lab / Micro Data 06/25/24 11:40 06/25/24 04:45 Labs: Laboratory Results - last 24 hr 06/25/24 04:45: WBC 3.7 L, RBC 2.64 L, Hgb 7.9 L, Hct 25.0 L, MCV 94.7, MCH 29.9, MCHC 31.6 L, RDW Std Deviation 44.8 H, RDW Coeff of Ngoc 13.1, Plt Count 273, MPV 10.9, Immature Gran % (Auto) 0.300, Neut % (Auto) 37.3 L, Lymph % (Auto) 36.8, [place] % (Auto) 21.0 H, Eos % (Auto) 3.8, Baso % (Auto) 0.8, Absolute Neuts (auto) 1.4 L, Absolute Lymphs (auto) 1.37, Nucleated RBC % 0, Sodium 133, Potassium 3.9, Chloride Direct 100, Carbon Dioxide 24.7, Anion Gap 8, BUN 11, Creatinine 0.5 L, Estim Creat Clear Calc 48.73, Est GFR (MDRD) Non-Af 97, BUN/Creatinine Ratio 22.0 H, Glucose 74, Calcium 8.5 06/25/24 11:40: Hgb 8.2 L, Hct 25.5 L Rhythm Strip Rhythm Strip: Sinus Rhythm Rate: 73 Ectopy: None Assessment & Plan Assessment/Plan (1) Melena: PLAN: Not active at present but very concerning the patient is having intermittent melena complicated by her being on apixaban. I will start her on IV pantoprazole because she does have peptic ulcer disease. Hold apixaban for now (2) Anemia: PLAN: Suspect acute as her hemoglobin has dropped from 10.2-8.5 this month. Will monitor and reevaluate in the morning. No indication to transfuse at this time. Charges/Coding Visit Charges Inpatient E&M: 41576 Init Hosp L3
[2024-06-24 19:09] VITALS: BP 103/56; PULSE 84; RESP 19; TEMP 36.6; O2SAT 97
--- NOTE | 2024-06-24 19:18 | ED.RN ---
NO OLD EKG
--- NOTE | 2024-06-24 19:43 | CASEMGMT ---
Care Management Face to Face with patient for initial transition planning/care coordination assessment in the ED.? This typewriter ribbon winder introduced self and role at [facility]. Patient alert and oriented. Patient willing to participate in assessment and is able to answer all questions appropriately.? Care providers, pharmacy, and demographics verified. Admitting Diagnosis: Melena Other diagnosis history: ?metastasis to lung, breast cancer, osteoporosis PCP: Sonia Specialists: ?Security Operations Center Analyst, patient unable to remember name Preferred Pharmacy: ?[facility] Insurance: ?[employer] Prescription Benefit: ?Yes Living Will/HPOA: ?none LNOK: niece Living Arrangements: ?Patient lives alone in two story home, stays on first floor.? Has been independent with ADLs and IADLs Transportation: niece drives DME: ?none HHC: none SNF/Rehab: none Community Resources: none Behavioral Health History: none Patient goals: Patient wishes to discharge home. Patient denies any further needs or concerns at this time. Disposition Plan: admission to acute; RN CM/SW to follow for discharge planning needs that may arise. Mary Pinto, SURFACE SHIP USW SUPERVISOR, GEOTHERMAL OPERATING ENGINEER
[2024-06-24 19:56] VITALS: BP 110/60; PULSE 88; RESP 16; TEMP 36.6; O2SAT 94; BMI 19.5
[2024-06-24] MEDS: Pantoprazole Sodium 40 MG in 0.9% Normal Saline (100mL MB+) 100 ML 330 MG IV (22:19)
[2024-06-25] VITALS (31 sets, daily range): BP systolic 84–122; BP diastolic 34–54; PULSE 18–94; RESP 12–80; TEMP 36.6–37.7; O2SAT 85–99; BMI 19.5
[2024-06-25] MEDS: 0.9% Normal Saline (1000mL) 1,000 ML 100 ML IV (03:30)
[2024-06-25 05:12] LABS: Absolute Lymphocyte Count 1.37 X10^3/uL (0.83-4.51); Absolute Neutrophil Count 1.4 X10^3/uL (2.0-7.7); Basophil# 0.03 X10^3/uL; Basophil% 0.8 % (0-1); Eosinophil# 0.14 X10^3/uL; Eosinophils% 3.8 % (0-5); Hemoglobin 7.9 g/dL (12.0-15.0); Lymphocyte # 1.37 X10^3/ul (0.83-4.51); Lymphocyte % 36.8 % (19-41); Mean Corp Hgb Conc 31.6 g/dL (32-36); Mean Corpuscular Hgb 29.9 pg (27.0-32.0); Mean Corpuscular Volume 94.7 fL (81-99); Mean Platelet Vol. 10.9 fl (6.2-12.0); Monocyte# 0.78 X10^3/uL; NRBC Flagged by Analyzer 0 % (0-5); Neutrophil # 1.39 X10^3/uL (2.7-7.7); Neutrophil % 37.3 % (47-70); Platelet Count 273 K/mm3 (150-450); RBC Distribution Width CV 13.1 % (11.6-14.6); RBC Distribution Width SD 44.8 fl (35.1-43.9); Red Blood Count 2.64 M/mm3 (4.2-5.4); White Blood Count 3.7 K/mm3 (4.4-11.0)
[2024-06-25 05:52] LABS: Anion Gap 8 (5-15); BUN 11 mg/dL (4-19); Calcium 8.5 mg/dL (7.6-11.0); Carbon Dioxide 24.7 mmol/L (22.0-29.0); Chloride 100 mmol/L (96-108); Creatinine, Serum 0.5 mg/dL (0.6-1.0); EST Glomerular Filtration Rate 97 (>60); Estimated Creatinine Clearance 48.73 ml/min; Glucose 74 mg/dL (70-99); Potassium 3.9 mmol/L (3.3-5.1); Sodium Level 133 mmol/L (133-145)
[2024-06-25] MEDS: Pantoprazole Sodium 40 MG in 0.9% Normal Saline (100mL MB+) 100 ML 330 MG IV ×2 (08:46→21:54)
[2024-06-25 11:50] LABS: Hematocrit 25.5 % (37-47); Hemoglobin 8.2 g/dL (12.0-15.0)
[2024-06-25] MEDS: Ipratropium/Albuterol Sulfate 3 ML AMPUL.NEB INHALATION ×2 (13:06→21:08)
--- NOTE | 2024-06-25 18:51 | PCM.PN.BLA ---
Progress Note 78-year-old female history of lung cancer, COPD, breast cancer on Eliquis of her prior left lower extremity DVT denies any prior history of GI bleed. Reportedly has had dark stool. She was seen by the nurse practitioner for oncology today. Her blood counts have been dropping they are concerned she has a GI bleed. She also has swelling in her bilateral lower extremities. Denies any chest pain. Physical Exam Const alert and no apparent distress Constitutional Narrative: Cachectic. Temporal wasting. Chronic clavicles. Nontoxic. HEENT normocephalic Resp normal respiratory effort, no retractions, no use of accessory muscles and clear to auscultation bilaterally Cardio regular rate, regular rhythm, S1 normal heart sound and S2 normal heart sound GI normal to inspection, nondistended, normoactive bowel sounds, soft to palpation, non-tender and non-distended Extremity Extremity Narrative: Bilateral lower extremity edema with venous stasis changes. Assessment & Plan Assessment/Plan (1) Melena: PLAN: Not active at present but very concerning the patient is having intermittent melena complicated by her being on apixaban. I will start her on IV pantoprazole because she does have peptic ulcer disease. Hold apixaban for now (2) Anemia: PLAN: Suspect acute as her hemoglobin has dropped from 10.2-8.5 this month. Will monitor and reevaluate in the morning. No indication to transfuse at this time. Visit Charges Inpatient E&M: 17391 [facility] Hosp L3
--- NOTE | 2024-06-25 18:55 | PCM.PN.HOSP ---
Reason for Visit Reason for Visit: Diagnoses Anemia, unspecified (06/24/24) Melena (06/24/24) Subjective Subjective Patient was seen and examined today, her systolic blood pressure at times was in the 90s today. Patient remains on 4 L of oxygen via nasal cannula at this time, I repeated her H&H today and it did not drop as compared with this morning's labs. Objective Data Objective Data Vital Signs: Vital Signs Temp Pulse Resp BP Pulse Ox O2 Del Method O2 Flow Rate 98.4 F 85 18 105/53 L 95 Nasal Cannula 4 06/25/24 16:20 06/25/24 16:20 06/25/24 16:20 06/25/24 16:20 06/25/24 16:20 06/25/24 16:20 06/25/24 16:20 Oxygen Flow Rate (L/min) 4 Oxygen Delivery Method Nasal Cannula Weight: 51.6 kg Body Mass Index (BMI) 19.5 Intake & Output: Intake and Output for Last 24 Hours 06/23/24 06/24/24 06/25/24 23:59 23:59 23:59 Intake Total 110 / 110 910 / 910 Output Total 850 / 850 Balance 110 / -240 60 / 60 Lab / Micro Data 06/25/24 11:40 06/25/24 04:45 Labs: Laboratory Results - last 24 hr 06/25/24 04:45: WBC 3.7 L, RBC 2.64 L, Hgb 7.9 L, Hct 25.0 L, MCV 94.7, MCH 29.9, MCHC 31.6 L, RDW Std Deviation 44.8 H, RDW Coeff of Ngoc 13.1, Plt Count 273, MPV 10.9, Immature Gran % (Auto) 0.300, Neut % (Auto) 37.3 L, Lymph % (Auto) 36.8, [place] % (Auto) 21.0 H, Eos % (Auto) 3.8, Baso % (Auto) 0.8, Absolute Neuts (auto) 1.4 L, Absolute Lymphs (auto) 1.37, Nucleated RBC % 0, Sodium 133, Potassium 3.9, Chloride Direct 100, Carbon Dioxide 24.7, Anion Gap 8, BUN 11, Creatinine 0.5 L, Estim Creat Clear Calc 48.73, Est GFR (MDRD) Non-Af 97, BUN/Creatinine Ratio 22.0 H, Glucose 74, Calcium 8.5 06/25/24 11:40: Hgb 8.2 L, Hct 25.5 L Rhythm Strip Rhythm Strip: Sinus Rhythm Rate: 73 Ectopy: None Physical Exam Const alert, oriented x3 and no apparent distress General Appearance: cooperative, well kempt and well developed Orientation / Consciousness: awake, oriented to person, oriented to place and oriented to time HEENT normocephalic, head/scalp atraumatic and moist oral mucous membranes Eyes PERRL, EOMs intact bilaterally and conjunctivae normal Neck supple, no JVD, thyroid normal and no carotid bruits General: trachea midline Resp normal respiratory effort, no retractions, no use of accessory muscles and clear to auscultation bilaterally Auscultation: Negative for rales, rhonchi or wheezes Cardio regular rate, regular rhythm, S1 normal heart sound, S2 normal heart sound, no murmurs, no rub and no gallops GI normal to inspection, nondistended, normoactive bowel sounds, soft to palpation, non-tender and non-distended Extremity no clubbing, cyanosis or edema Skin no rashes or lesions noted General Skin Exam: no breakdown Neuro oriented x3, CN's II-XII intact bilaterally, no focal motor deficits and no sensory deficits noted Sensorium / Orientation: awake and alert Speech: speech normal Psych affect normal Assessment & Plan Assessment/Plan (1) Acute GI bleeding: PLAN: Plan 1. Acute GI bleed-site unclear, patient will undergo an EGD today, patient remains on IV PPI, CBC will be repeated tomorrow morning #2 non-small cell lung cancer-patient is on immunotherapy presently, she will follow-up as an outpatient #3 hypoxia-etiology unclear, patient was placed on aerosol treatments today Total clinical time spent by myself addressing the patient's medical issues, reviewing all of her data, and collaborating with patient's care team: 35 minutes Charges/Coding Visit Charges Inpatient E&M: 08230 Subs Hosp L2
--- NOTE | 2024-06-25 18:59 | PCM.PRE.AN2 ---
ASA Classification* ASA Classification ASA Classification: 3 Assessment & Plan Anesthesia* Anesthesia Assessment Anesthesia Assessment: Discussed sedation and/or anesthesia options, risks, benefits, and alternatives with patient/parents/legal guardian/POA. Questions invited. The patient/parents/legal guardian/POA seems to understand and agrees to proceed with anesthesia plan. Reviewed the physical assessment, medical history, allergy history and patient home medications list prior to surgery/procedure/anesthetic and documented any changes. Performed airway and anesthesia risk assessments. Anesthesia Type Anesthesia Type: MAC History Source History Obtained from:: Patient and Chart Anesthesia Focused Assessment* Temperature: 98.4 F Pulse Rate: 85 Blood Pressure: 105/53 Respiratory Rate: 18 Pulse Ox: 95 Oxygen Delivery Method: Room Air Oxygen Flow Rate (L/min): 4 Airway Assessment Mouth opens: >3 cm Mallampati Score: I Teeth Condition: Dentures (Full upper and lower dentures are out.) Neck Range of motion (ROM): Full ROM Focused Labs Anesthesia Preop lab: CBC WBC 3.7 K/mm3 (4.4-11.0) L 06/25/24 04:45 06/25/24 RBC 2.64 M/mm3 (4.2-5.4) L 06/25/24 04:45 06/25/24 Hgb 8.2 g/dL (12.0-15.0) L 06/25/24 11:40 06/25/24 Hct 25.5 % (37-47) L 06/25/24 11:40 06/25/24 Plt Count 273 K/mm3 (150-450) 06/25/24 04:45 06/25/24 CHEMISTRY Potassium 3.9 mmol/L (3.3-5.1) 06/25/24 04:45 06/25/24 Sodium 133 mmol/L (133-145) 06/25/24 04:45 06/25/24 Magnesium 2.3 mg/dL (1.6-2.6) 06/12/23 09:20 06/12/23 Phosphorus 3.9 mg/dL (2.7-4.5) 06/24/24 12:25 06/24/24 BUN 11 mg/dL (4-19) 06/25/24 04:45 06/25/24 Creatinine 0.5 mg/dL (0.6-1.0) L 06/25/24 04:45 06/25/24 Glucose 74 mg/dL (70-99) 06/25/24 04:45 06/25/24 POC Glucose 289 mg/dL (74-106) H 04/05/23 13:06 04/05/23 TSH 3.690 uIU/mL (0.300-4.200) 06/24/24 12:25 06/24/24 COAG PT 12.1 SECONDS (11.7-14.9) 02/18/23 07:47 02/18/23 Pre-Assessment Diagnosis/Proposed Procedure Planned Operative Procedure(s): EGD Anesthesia History 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 When Was Last Pacemaker Check QUESTION #4 FULL TEXT: You/Your Family Experience fever (hyperthermia) with Anesthesia Last Oral Intake Last Oral intake: Last Oral Intake NPO since 00:00 06/25/24 02:55 Meds taken in AM with sips of water? Meds patient instructed to take am of surgery PONV PONV - surface to air weapons officer: PONV - surface to air weapons officer Female HX of Motion Sickness HX of N/V After Surgery Non-Smoker Duration of Surgery greater than 60 minutes Number of Risk Factors PONV Score Height & Weight Height & Weight: Anesthesia: Height & Weight Height 5 ft 4 in 06/25/24 11:00 Weight: 51.6 kg 06/25/24 11:00 Body Mass Index (BMI) 19.5 06/25/24 02:55 Respiratory Assessment Respiratory Assessment - surface to air weapons officer: Respiratory Tract Infection Hx - surface to air weapons officer Hx Respiratory Tract Infection No 06/25/24 02:55 STOP Sleep Apnea STOP Sleep Apnea - surface to air weapons officer: STOP Sleep Apnea - surface to air weapons officer Hx Hypertension No 06/25/24 13:07 Hx Sleep Apnea No 06/24/24 19:56 CPAP BIPAP Do you snore loudly (louder No 06/24/24 19:56 than talking or can be heard Do you often feel tired/ Yes 06/24/24 19:56 fatigued/ sleepy during daytime? Has anyone observed you stop No 06/24/24 19:56 breathing during sleep? STOP Results Negative 06/24/24 19:56 QUESTION #5 FULL TEXT : Do you snore loudly (louder than talking or can be heard through closed doors)? 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 Specify any problems Hx of Preganancy in last 3 No 06/24/24 19:56 Months Nurse Filling Out Transfusion JSNOW 06/24/24 19:56 & Questions: Date: 06/24/24 06/24/24 19:56 Time: 20:09 06/24/24 19:56 Patient unable to answer at this time (ie. confused, unrespo /Reproduction History /Reproductive History - surface to air weapons officer: /Reproductive Hx- surface to air weapons officer Hx Now No 06/25/24 02:55 Gestational Age (in weeks): EDC: Hx Hx Para Hx Section SAB No 06/25/24 02:55 Active Medications Active Medications: Current Medications Generic Name Dose Route Start Last Admin Trade Name Freq PRN Reason Stop Dose Admin Acetaminophen 650 mg 06/24/24 19:54 Acetaminophen 325 Mg Tablet PO Q6H PRN PRN Pain 1-10 Or Fever >100.7 Albuterol/Ipratropium 3 ml 06/25/24 11:45 06/25/24 13:06 Ipratropium/Albuterol Sulfate 3 Ml Ampul.Neb INHALATION 3 ml Q6H.RT VU Administration Pantoprazole Sodium 40 mg/ 110 mls @ 330 mls/hr 06/24/24 22:00 06/25/24 09:16 Sodium Chloride IV Infused Q12 VU Infusion Nutritional Formula (Lactose Free) 120 ml 06/25/24 08:00 06/25/24 16:33 Ensure Plus High Protein 120 Ml Liquid PO Not Given TIDCM VU Ondansetron HCl 4 mg 06/24/24 19:54 Ondansetron 4 Mg/2 Ml Vial IV Q8H PRN PRN NAUSEA/VOMITING Oxycodone HCl 2.5 - 5 mg 06/24/24 19:54 Oxycodone 5 Mg Tablet PO Q4H PRN PRN Pain Score 4-10 Sodium Chloride 10 - 40 ml 06/24/24 19:57 0.9% Saline Lock 10 Ml Syringe IV UD PRN SALINE FLUSH PFSH Medical History Bilateral lower extremity edema Metastasis to lung Upper extremity weakness DVT, lower extremity Dehydration Fatigue Wears glasses Wears dentures Post-menopausal Cancer High cholesterol Back pain Osteoporosis Smoker Asthma Shortness of breath on exertion Chronic cough Leg cramps History of echocardiogram History of stress test Cardiology follow-up encounter History of arm fracture Encounter for education Nasal lesion Mild mitral valve regurgitation Chest pressure Breast cancer Aortic valve sclerosis COPD (chronic obstructive pulmonary disease) Tobacco abuse Paronychia Numbness and tingling in left arm Mass of right side of neck Home Medications ?Medication ?Instructions ?Recorded ?Last Taken ?Type albuterol sulfate 90 mcg/actuation 2 puff inhalation Q6H PRN sob 12/15/20 06/23/24 History aerosol inhaler ondansetron 8 mg disintegrating 8 mg PO Q8H PRN nausea and 03/26/23 Unknown Rx tablet vomiting #30 tabs docusate sodium 100 mg capsule 100 mg PO BID PRN constipation 05/08/23 06/22/24 History (Colace) apixaban 5 mg tablet (Eliquis) 5 mg PO BID blood thinner 04/01/24 06/24/24 08:00 History rosuvastatin 10 mg tablet 10 mg PO QDAY Cholesterol 04/01/24 06/23/24 22:00 History Allergy/AdvReac Type Severity Reaction Status Date / Time codeine Allergy Unknown Other Verified 06/24/24 20:13 Family History Father Cancer Lung Brother Cancer Lung Mother CVA (cerebral vascular accident) Hypertension Surgical History Hx of colonoscopy History of mastectomy Social History Smoking Status: Current every day smoker tobacco type: cigarettes Tobacco: How many years used: 53 Review of Systems (Anesthesia) ROS Narrative System reviewed and no additional complaints, except as documented.
--- NOTE | 2024-06-25 19:35 | OP.CCLET_ITS ---
06/25/2024 Janusz Scott Do Re : Upper GI endoscopy procedure for Karen Watson Dear Sonia This procedure was performed on May. My impressions and recommendations are as follows: Impressions : - Normal esophagus. - Medium-sized hiatal hernia. 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 Treated with a heater probe. 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 Treated with a heater probe. - No specimens collected. Recommendations : - Return patient to [facility] for ongoing care. - Full liquid diet. - Continue present medications. My findings are described in the full procedure note, which is enclosed. If I can be of further assistance, please feel free to contact me at . Sincerely, Damián Grajeda, 06/25/2024 7:34:52 PM This report has been signed electronically.
--- NOTE | 2024-06-25 19:35 | OP.EGD_ITS ---
Patient Name: Karen Watson Procedure Date: 06/25/2024 6:59 PM Date of : 1945 Age: 78 Procedure: Upper GI endoscopy Indications: Acute post hemorrhagic anemia, Melena Providers: Damián Grajeda DO Medicines: Monitored Anesthesia Care Patient Profile: This is a 78 year old female. Refer to note in patient chart for documentation of history and physical. Patient has symptoms. Complications: No immediate complications. Procedure: Pre-Anesthesia Assessment: - Prior to the procedure, a History and Physical was performed, and patient medications and allergies were reviewed. The patient is competent. The risks and benefits of the procedure and the sedation options and risks were discussed with the patient. All questions were answered and informed consent was obtained. Patient identification and proposed procedure were verified by the physician in the pre-procedure area. Mental Status Examination: alert and oriented. Airway Examination: normal oropharyngeal airway and neck mobility. Respiratory Examination: clear to auscultation. CV Examination: normal. ASA Grade Assessment: II - A patient with mild systemic disease. After reviewing the risks and benefits, the patient was deemed in satisfactory condition to undergo the procedure. The anesthesia plan was to use monitored anesthesia care (MAC). Immediately prior to administration of medications, the patient was re-assessed for adequacy to receive sedatives. The heart rate, respiratory rate, oxygen saturations, blood pressure, adequacy of pulmonary ventilation, and response to care were monitored throughout the procedure. The physical status of the patient was re-assessed after the procedure. After obtaining informed consent, the endoscope was passed under direct vision. Throughout the procedure, the patient's blood pressure, pulse, and oxygen saturations were monitored continuously. The Endoscope was introduced through the mouth, and advanced to the jejunum. The upper GI endoscopy was accomplished without difficulty. The patient tolerated the procedure well. Scope In: 7:17:58 PM Scope Out: 7:26:45 PM Total Procedure Duration Time 0 hours 8 minutes 47 seconds Findings: The examined esophagus was normal. A medium-sized hiatal hernia was present. Five 5 mm angiodysplastic lesions with no bleeding were found in the cardia, in the gastric fundus, on the greater curvature of the stomach and on the lesser curvature of the stomach. Coagulation for bleeding prevention using heater probe was successful. Estimated blood loss was minimal. 14 5 mm angiodysplastic lesions with bleeding were found in the duodenal bulb, in the first portion of the duodenum, in the second portion of the duodenum, in the third portion of the duodenum and in the fourth portion of the duodenum. Coagulation for hemostasis using heater probe was successful. Estimated blood loss was minimal. Impression: - Normal esophagus. - Medium-sized hiatal hernia. 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 Treated with a heater probe. 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 Treated with a heater probe. - No specimens collected. Recommendation: - Return patient to hospital [facility] for ongoing care. - Full liquid diet. - Continue present medications. Procedure Code(s): --- Professional --- 76156, Esophagogastroduodenoscopy, flexible, transoral; with control of bleeding, any method CPT copyright 2021 [employer]. All rights reserved. The codes documented in this report are preliminary and upon line walker review may be revised to meet current compliance requirements. Damián Grajeda DO 06/25/2024 7:34:52 PM This report has been signed electronically. Number of Addenda: 0 Note Initiated On: 06/25/2024 6:59 PM
--- NOTE | 2024-06-25 19:38 | PCM.POST.ANE ---
Anesthesia: Postop Eval I Current Vital Signs Temperature: 99 F Pulse Rate: 88 Blood Pressure: 93/43 Respiratory Rate: 16 Pulse Ox: 90 Oxygen Delivery Method: Nasal Cannula Oxygen Flow Rate (L/min): 6 Assessment Airway patent: Yes Spontaneous unlabored respirations: Yes Mental status: Awake and Calm nausea: No Vomiting: No Anesthesia Complication: No Fluid Hydration Crystalloid volume administer (ml): 10 Total IV fluid infused: 10 Progress Note Anesthesia document: Postop Eval 1 completed: Yes
--- NOTE | 2024-06-25 19:58 | PCM.POSTANE2 ---
Anesthesia Postop Eval I Sum Postop Eval Completion status Anesthesia document: Postop Eval 1 completed: Yes Anesthesia Postop Eval I Summary Anesthesia Postop Eval I Summary: Anesthesia Postop Eval I: Assessment Summary Airway patent Yes 06/25/24 19:42 Spontaneous unlabored Yes 06/25/24 19:42 respirations Mental status Awake,Calm 06/25/24 19:42 nausea No 06/25/24 19:42 Vomiting No 06/25/24 19:42 Anesthesia Postop Eval I: Fluid Summary Crystalloid volume administer 10 06/25/24 19:42 (ml) Colloids volume administered ( ml) Blood Product volume administered (ml) Total IV fluid infused 10 06/25/24 19:42 Anesthesia Postop Eval I: Summary Notes Anesthesia Complication No 06/25/24 19:42 Anesthesia Complication Comment: Post-operative progress note Anesthesia: Postop Eval II Evaluation Mental status: Awake and Calm Pain Level: 0 nausea: No Vomiting: No Progress Note Post-operative progress note: DuoNeb breathing treatment given in PACU. Pt still on 4 liters of oxygen. Complications Anesthesia Complication: No
[2024-06-25] MEDS: 0.9% Saline Lock 10 ML Syringe IV (21:54)
[2024-06-26] VITALS (12 sets, daily range): BP systolic 97–113; BP diastolic 46–58; PULSE 85–92; RESP 16–93; TEMP 36.6–37.9; O2SAT 18–97
[2024-06-26 05:31] LABS: Absolute Lymphocyte Count 1.17 X10^3/uL (0.83-4.51); Absolute Neutrophil Count 1.3 X10^3/uL (2.0-7.7); Basophil# 0.04 X10^3/uL; Basophil% 1.2 % (0-1); Eosinophil# 0.07 X10^3/uL; Eosinophils% 2.1 % (0-5); Hematocrit 25.7 % (37-47); Hemoglobin 7.8 g/dL (12.0-15.0); Lymphocyte # 1.17 X10^3/ul (0.83-4.51); Lymphocyte % 35.6 % (19-41); Mean Corp Hgb Conc 30.4 g/dL (32-36); Mean Corpuscular Hgb 29.3 pg (27.0-32.0); Mean Corpuscular Volume 96.6 fL (81-99); Mean Platelet Vol. 11.4 fl (6.2-12.0); Monocyte# 0.71 X10^3/uL; Monocyte% 21.6 % (0-10); NRBC Flagged by Analyzer 0 % (0-5); Neutrophil # 1.29 X10^3/uL (2.7-7.7); Neutrophil % 39.2 % (47-70); Platelet Count 275 K/mm3 (150-450); RBC Distribution Width SD 46.6 fl (35.1-43.9); Red Blood Count 2.66 M/mm3 (4.2-5.4); White Blood Count 3.3 K/mm3 (4.4-11.0)
[2024-06-26] MEDS: Ipratropium/Albuterol Sulfate 3 ML AMPUL.NEB INHALATION (07:06)
[2024-06-26] MEDS: Ensure Plus High Protein 120 ML LIQUID PO ×2 (08:23→12:40)
[2024-06-26] MEDS: Pantoprazole Sodium 40 MG in 0.9% Normal Saline (100mL MB+) 100 ML 330 MG IV (09:10)
[2024-06-26] MEDS: 0.9% Saline Lock 10 ML Syringe IV (09:10)
--- NOTE | 2024-06-26 14:13 | CASEMGMT ---
SHARON PATRICK into pt room, pt states she does not use O2 at home. SHARON PATRICK notified hospitalist. He would like to get a walking pulse ox on patient. Notified nurse.
--- NOTE | 2024-06-26 15:03 | CASEMGMT ---
RN CM notified by RN that pt qualifies for home O2. RN CM into pt room, provided verbal list of O2 providers, pt chose [facility] as DME provider of choice. Obtained order from hospitalist and sent referral via [facility].
--- NOTE | 2024-06-26 15:34 | DCINST_ITS ---
Discharge Instructions Diet Discharge Diet: No restrictions DC O2, CPAP, BIPAP needs Home O2 Discharge instructions: Yes Type of respiratory needs?: Oxygen Oxygen frequency: Continuous Continuous oxygen liters per minute: 3 L and With Ambulation Oxygen liters per minute during Ambulation: 4 L Follow Up Care Test Results: Test results from this visit will be discussed in further detail at your follow- up appointment, if applicable. Discharge Plan Admission Admit Date/Time: 06/24/24 18:21 Primary Reason for Your Visit: Anemia Attending Provider: Brian Darling Primary Care Provider: Janusz Scott Consulting Providers: Mitesh Bland Discharge Orders/Prescriptions Prescriptions: New pantoprazole [Protonix] 40 mg tablet,delayed release (DR/EC) 40 mg PO BID Qty: 60 0RF sucralfate [Carafate] 1 gram tablet 1 g PO TID Qty: 90 0RF Continued albuterol sulfate 90 mcg/actuation HFA aerosol inhaler 2 puff inhalation Q6H PRN (Reason: sob) ondansetron 8 mg tablet,disintegrating 8 mg PO Q8H PRN (Reason: nausea and vomiting) Qty: 30 2RF docusate sodium [Colace] 100 mg capsule 100 mg PO BID PRN (Reason: constipation) rosuvastatin 10 mg tablet 10 mg PO QDAY Eliquis 5 mg tablet 5 mg PO BID Qty: 1 0RF Rx Instructions: Restart your Eliquis in 10 days Referrals / Follow Up: Janusz Scott DO [Primary Care Provider] - In 1 Week (You will need your CBC rechecked) FriendDamián DO [Med Staff - Active Staff] - See Referral Note (In 3 weeks- call for an appointment) Disposition Disposition (needs filled in before D/C Order can be placed): Home, Self Care
--- NOTE | 2024-06-26 15:44 | PCM.DC.SUM ---
Providers Date of Admission: 06/24/24 Date of Discharge: 06/26/24 Primary Care Physician: Dr. Janusz Scott, Consultations 06/24/24 19:54 Consult: Gastroenterology Routine Consulting Provider: [facility] Reason for Consult: GI bleed EMERGENT Consult: No MD Notified: Yes Date Notified: 06/24/24 Time Notified: 18:23 Method of Notification: ED Physician Initiated Reason For Visit: ANEMIA, MELENA Diagnosis Discharge Diagnosis (1) Acute GI bleeding: Status: Acute Code(s): K92.2 - Gastrointestinal hemorrhage, unspecified Plan 1. Acute GI bleed-site unclear, patient will undergo an EGD today, patient remains on IV PPI, CBC will be repeated tomorrow morning #2 non-small cell lung cancer-patient is on immunotherapy presently, she will follow-up as an outpatient #3 hypoxia-etiology unclear, possibly secondary to chronic obstructive pulmonary disease #4 upper GI bleed secondary to angiodysplastic lesions in the stomach and angiodysplastic lesions in the duodenum Total clinical time spent by myself addressing the patient's medical issues, reviewing all of her data, and collaborating with patient's care team: 35 minutes Medications at Discharge Home Medications albuterol sulfate 90 mcg/actuation aerosol inhaler 2 puff inhalation Q6H PRN sob 12/15/20 ondansetron 8 mg disintegrating tablet 8 mg PO Q8H PRN nausea and vomiting #30 tabs 03/26/23 docusate sodium 100 mg capsule (Colace) 100 mg PO BID PRN constipation 05/08/23 rosuvastatin 10 mg tablet 10 mg PO QDAY Cholesterol 04/01/24 apixaban 5 mg tablet (Eliquis) 5 mg PO BID blood thinner #1 TAB 06/26/24 pantoprazole 40 mg tablet,delayed release (Protonix) 40 mg PO BID #60 tabs 06/26/24 sucralfate 1 gram tablet (Carafate) 1 g PO TID #90 tabs 06/26/24 Hospital Course Operations None Procedures EGD Summary of Care Provided Minutes Spent on Discharge: 31 Hospital Course: This 78-year-old white female was seen in the emergency room at [facility] after being sent in by her oncology nurse practitioner due to low hemoglobin. Workup in the emergency room included a CBC which was abnormal for a hemoglobin of 8.5, patient was admitted to PCU and required supplemental oxygen due to hypoxia. Patient underwent an EGD which showed angiodysplastic lesions in the stomach and duodenum-these areas were treated. On 06/26/2024, patient was seen and examined: On examination she appeared in good health and spirits, she does not appear to be in any distress. Vital signs as documented. Skin warm and dry and without overt rashes. Neck without JVD, thyroid appears normal, trachea is midline, neck is supple. Lungs clear, normal air movement was noted. Heart exam notable for regular rhythm, normal sounds and absence of murmurs, rubs or gallops. Abdomen unremarkable and without evidence of organomegaly, masses, or abdominal aortic enlargement, bowel sounds are present in all 4 quadrants, no abdominal tenderness was noted. Extremities nonedematous, no cyanosis was noted, no clubbing was noted. Neuro: Cranial nerves II through XII are grossly intact, no focal motor deficits were noted, sensation to light touch and pinprick is intact, motor exam 5/5 throughout. Psych: Patient is alert and oriented x3, she does not appear anxious or depressed, she does not appear agitated. Patient appears stable for discharge on 06/26/2024, she required 3 L of oxygen at rest and 4 L of oxygen with ambulation, this was arranged for the patient at the time of discharge Weight / BMI Weight Weight: 51.6 kg Body Mass Index (BMI) 19.5 ABG / Lab / Microbiology Data 06/26/24 04:45 06/25/24 04:45 Laboratory: Laboratory Results - last 24 hr 06/24/24 17:49: Crossmatch See Detail D/C Instructions Discharge Diet: No restrictions DC O2, CPAP, BIPAP Needs Home O2 Discharge instructions: Yes Type of respiratory needs?: Oxygen Oxygen frequency: Continuous Continuous oxygen liters per minute: 3 L and With Ambulation Oxygen liters per minute during Ambulation: 4 L DC home with Oxygen: Yes Home O2 MD Review: I have reviewed the oxygen testing, and the patient qualifies for home oxygen equipment and portability. The patient is mobile in the home and the community. Meaningful Use Info Meaningful Use Meaningful Use Diagnoses (Choose all that apply): None applicable Ischemic Stroke Statin Dosing Therapy Reference: STATIN DOSE THERAPY REFERENCE: * Patients > 75 years receive moderate or high dose statin therapy. * Patients 75 years or YOUNGER should receive HIGH intensity statin dose unless contraindicated. You will be required to document reason for non-treatment if statin daily dose does not meet guidelines. HIGH DOSE STATIN THERAPY DAILY Atorvastatin > than or = to 40 mg Rosuvastatin > than or = to 20 mg Amlodipine + Atorvastatin > than or = to 2.5/40 mg Ezetimibe + Simvastatin 10/80 mg Simvastatin 80mg Discharge Plan Admission Admit Date/Time: 06/24/24 18:21 Primary Reason for Your Visit: Anemia Attending Provider: Brian Darling Primary Care Provider: Janusz Scott Consulting Providers: Mitesh Bland Discharge Orders/Prescriptions Prescriptions: New pantoprazole [Protonix] 40 mg tablet,delayed release (DR/EC) 40 mg PO BID Qty: 60 0RF sucralfate [Carafate] 1 gram tablet 1 g PO TID Qty: 90 0RF Continued albuterol sulfate 90 mcg/actuation HFA aerosol inhaler 2 puff inhalation Q6H PRN (Reason: sob) ondansetron 8 mg tablet,disintegrating 8 mg PO Q8H PRN (Reason: nausea and vomiting) Qty: 30 2RF docusate sodium [Colace] 100 mg capsule 100 mg PO BID PRN (Reason: constipation) rosuvastatin 10 mg tablet 10 mg PO QDAY Eliquis 5 mg tablet 5 mg PO BID Qty: 1 0RF Rx Instructions: Restart your Eliquis in 10 days Referrals / Follow Up: Janusz Scott DO [Primary Care Provider] - 07/03/24 11:30 am (You will need your CBC rechecked) FriendDamián DO [Med Staff - Active Staff] - See Referral Note (In 3 weeks-call for an appointment) Disposition Disposition (needs filled in before D/C Order can be placed): Home, Self Care Charges/Coding Visit Charges Inpatient E&M: 90184 Disch Hosp >30min
--- NOTE | 2024-06-26 18:44 | PCM.PN.BLA ---
Progress Note Patient underwent an upper endoscopy yesterday for upper GI bleed and was discovered to have multiple ulcers throughout her upper GI tract. Physical Exam Const alert, oriented x3 and no apparent distress General Appearance: cooperative, well kempt and well developed Orientation / Consciousness: awake, oriented to person, oriented to place and oriented to time HEENT normocephalic, head/scalp atraumatic and moist oral mucous membranes Eyes PERRL, EOMs intact bilaterally and conjunctivae normal Neck supple, no JVD, thyroid normal and no carotid bruits General: trachea midline Resp normal respiratory effort, no retractions, no use of accessory muscles and clear to auscultation bilaterally Auscultation: Negative for rales, rhonchi or wheezes Cardio regular rate, regular rhythm, S1 normal heart sound, S2 normal heart sound, no murmurs, no rub and no gallops GI normal to inspection, nondistended, normoactive bowel sounds, soft to palpation, non-tender and non-distended Extremity no clubbing, cyanosis or edema Skin no rashes or lesions noted General Skin Exam: no breakdown Neuro oriented x3, CN's II-XII intact bilaterally, no focal motor deficits and no sensory deficits noted Sensorium / Orientation: awake and alert Speech: speech normal Psych affect normal Assessment & Plan Assessment/Plan (1) Melena: (2) Anemia: (3) Acute GI bleeding: PLAN: Findings: The examined esophagus was normal. A medium-sized hiatal hernia was present. Five 5 mm angiodysplastic lesions with no bleeding were found in the cardia, in the gastric fundus, on the greater curvature of the stomach and on the lesser curvature of the stomach. Coagulation for bleeding prevention using heater probe was successful. Estimated blood loss was minimal. 14 5 mm angiodysplastic lesions with bleeding were found in the duodenal bulb, in the first portion of the duodenum, in the second portion of the duodenum, in the third portion of the duodenum and in the fourth portion of the duodenum. Coagulation for hemostasis using heater probe was successful. Estimated blood loss was minimal. Impression: - Normal esophagus. - Medium-sized hiatal hernia. 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 Treated with a heater probe. 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 Treated with a heater probe. - No specimens collected. Recommendation: - Return patient to hospital [facility] for ongoing care. - Full liquid diet. - Continue present medications. Visit Charges Inpatient E&M: 27766 Subs Hosp L3
== END 2024-06-26 17:48 | disposition home or self-care (01) | DRG 378 ==
LOC: ED 17:36 → PCU 18:57
PROVIDERS: Internal Medicine Gastroenterology; Emergency Provider Emergency Medicine; PCP Student in an Organized Health Care Education/Training Program; Visit Provider Internal Medicine
PROC: 0DJ08ZZ Inspection of Upper Intestinal Tract, Via Natural or Artificial Opening Endoscopic (ICD-10-PCS; CPT 43235; principal; 2024-06-25 17:10)
DX: K31.811 Angiodysplasia of stomach and duodenum with bleeding (principal); D68.32 Hemorrhagic disorder due to extrinsic circulating anticoagulants; C34.32 Malignant neoplasm of lower lobe, left bronchus or lung; D50.8 Other iron deficiency anemias; E78.00 Pure hypercholesterolemia, unspecified; F17.210 Nicotine dependence, cigarettes, uncomplicated; J44.9 Chronic obstructive pulmonary disease, unspecified; K44.9 Diaphragmatic hernia without obstruction or gangrene; T45.515A Adverse effect of anticoagulants, initial encounter; R09.02 Hypoxemia; Z79.01 Long term (current) use of anticoagulants; Z79.899 Other long term (current) drug therapy; Z86.718 Personal history of other venous thrombosis and embolism
CPT/HCPCS: 36415; 36591; 71045; 80048; 80053; 83010; 83615; 84100; 84443; 84484; 85014; 85018; 85025; 85045; 86850; 86880; 86900; 86901; 86920; 93005; 94640; 94760; 97161; 99283; 99406; A4216; J2405

== ENCOUNTER → 2024-07-09 | Outpatient (CLI) | payer MEDICARE, SELFPAY ==
--- NOTE | 2024-07-09 08:33 | ECHODONC_ITS ---
Reason For Study Reason For Study: DYSPNEA Procedure This was a 2D Doppler, Color Flow transthoracic echocardiogram. Myocardial strain analysis was performed in this exam to aid in the assessment of cardiac function. Exam performed in department. Left Ventricle Normal LV size. Left ventricular systolic function is normal. The left ventricular ejection fraction is 60 %. Right Ventricle Normal RV size. Normal systolic function. Atria Normal left atrium. Normal right atrium. Mitral Valve The mitral valve is structurally normal. No prolapse or stenosis seen. Tricuspid Valve Normal tricuspid valve. Aortic Valve Trisinus/trileaflet aortic valve. Pulmonic Valve Normal pulmonic valve. Great Vessels Normal aortic root. The pulmonary artery is normal size. Pericardium/Pleural No pericardial effusion. MMode/2D Measurements & Calculations LVIDd: 3.8 cm IVSd: 0.79 cm Ao root diam: 3.1 cm LVIDs: 2.6 cm LVPWd: 0.75 cm RVDd: 2.6 cm FS: 32.0 % LAV(MOD-bp): 35.5 ml LVAd ap4: 22.3 cm2 LVAd ap2: 21.9 cm2 LAV(MOD-bp) Indexed: 23.1 ml/m2 LVLd ap4: 6.8 cm LVLd ap2: 7.1 cm LAV(MOD-sp2): 33.7 ml EDV(MOD-sp4): 60.8 ml EDV(MOD-sp2): 57.7 ml LAV(MOD-sp4): 33.2 ml EDV(sp4-el): 62.3 ml EDV(sp2-el): 57.4 ml LVAs ap4: 11.9 cm2 LVAs ap2: 11.4 cm2 LVLs ap4: 5.2 cm LVLs ap2: 5.6 cm ESV(MOD-sp4): 21.8 ml ESV(MOD-sp2): 19.4 ml ESV(sp4-el): 22.9 ml ESV(sp2-el): 19.5 ml EF(MOD-sp4): 64.2 % EF(MOD-sp2): 66.4 % EF(sp4-el): 63.3 % SV(MOD-sp4): 39.0 ml SV(MOD-sp2): 38.3 ml SV(sp4-el): 39.4 ml SI(MOD-sp4): 25.3 ml/m2 SI(MOD-sp2): 24.9 ml/m2 LA A4 area: 13.4 cm2 LA dimension(2D): 3.0 cm RA A4 area: 13.0 cm2 TAPSE: 2.2 cm Time Measurements MV dec time: 0.17 sec Doppler Measurements & Calculations MV E max dudley: 110.9 cm/sec Lat Peak E' Dudley: 9.5 cm/sec Med Peak E' Dudley: 10.8 cm/sec MV A max dudley: 96.6 cm/sec E/E' lat: 11.7 E/E' med: 10.3 MV E/A: 1.1 MV V2 max: 111.0 cm/sec Ao V2 max: 108.2 cm/sec MV max P.9 mmHg MV dec slope: 645.7 cm/sec2 Ao max P.7 mmHg MV V2 mean: 69.0 cm/sec Ao V2 mean: 72.0 cm/sec MV mean P.2 mmHg Ao mean P.4 mmHg MV V2 VTI: 30.5 cm Ao V2 VTI: 24.6 cm AV (velocity ratio): 0.90 LV V1 max: 100.9 cm/sec PA V2 max: 83.8 cm/sec TR max dudley: 254.0 cm/sec LV V1 max P.1 mmHg PA V2 mean: 60.5 cm/sec TR max P.8 mmHg LV V1 mean P.1 mmHg LV V1 mean: 69.0 cm/sec LV V1 VTI: 22.3 cm ECHO/ONC Echo Complete Interpretation Summary The left ventricular ejection fraction is 60 %. Normal LV size. Structurally normal valves. The global longitudinal strain = -21.5 % (normal). The global longitudinal strain is normal. Structurally normal valves. The global longitudinal strain is normal. The globa l longitudinal strain = -21.5 % (normal). Ordering Physician: Christi Hancock Referring Physician: Janusz Scott Performed By: Brandy White, [place], RVT
== END | disposition home or self-care (01) ==
PROVIDERS: PCP Student in an Organized Health Care Education/Training Program; Referring Provider Nurse Practitioner Family; Visit Provider Nurse Practitioner Family
DX: R06.09 Other forms of dyspnea (principal); R60.0 Localized edema; Z51.81 Encounter for therapeutic drug level monitoring; Z79.899 Other long term (current) drug therapy
CPT/HCPCS: 93306; 93356

== ENCOUNTER → 2024-07-15 | Outpatient (CLI) | payer MEDICARE, SELFPAY ==
--- NOTE | 2024-07-15 14:05 | VDLE_ITS ---
Reason For Study Reason For Study: Bilateral leg swelling RIGHT LEFT GSV is normal. GSV is normal. CFV is compressible, spontaneous, phasic, competent CFV is compressible, spontaneous, phasic, competent, and demonstrates normal augmentation. and demonstrates normal augmentation. FV is compressible, spontaneous, phasic, competent FV is compressible, spontaneous, phasic, competent and demonstrates normal augmentation. and demonstrates normal augmentation. POP V is compressible, spontaneous, phasic, competent POP V is compressible, spontaneous, phasic, competent and demonstrates normal augmentation. and demonstrates normal augmentation. T/P Trunk is compressible. T/P Trunk is compressible. PTV is compressible. PTV is compressible. RT PerV is compressible. LT PerV is compressible. Procedure This is a venous duplex using B-mode, color flow and spectral Doppler. Exam performed in department. A preliminary report was called and/or faxed to Trinh HERRERA. VL/Venous Duplex US - Chava Extrem Interpretation Summary Deep veins of the lower extremities are bilaterally patent and compressible seg mentally. There is no evidence of deep vein thrombosis on either side. Valvular competence appears intact within the p roximal deep venous systems bilaterally. The great saphenous veins appear bilaterally patent and compressible segmentall y. Ordering Physician: Aaron Duarte Referring Physician: Janusz Scott Performed By: Esha Begum RVT
== END | disposition home or self-care (01) ==
LOC: CVS 14:04
PROVIDERS: PCP Student in an Organized Health Care Education/Training Program; Referring Provider Internal Medicine Medical Oncology; Visit Provider Internal Medicine Medical Oncology
DX: R60.0 Localized edema (principal)
CPT/HCPCS: 93970

== ENCOUNTER → 2024-07-27 | Outpatient (CLI) | payer MEDICARE, SELFPAY ==
[2024-07-27 11:33] LABS: Absolute Lymphocyte Count 1.68 X10^3/uL (0.83-4.51); Absolute Neutrophil Count 3.7 X10^3/uL (2.0-7.7); Basophil# 0.04 X10^3/uL; Basophil% 0.6 % (0-1); Eosinophil# 0.08 X10^3/uL; Eosinophils% 1.3 % (0-5); Hematocrit 21.2 % (37-47); Hemoglobin 6.8 g/dL (12.0-15.0); Immature Platelet Fraction 6.7 % (1.0-7.9); Lymphocyte # 1.68 X10^3/ul (0.83-4.51); Lymphocyte % 26.7 % (19-41); Mean Corp Hgb Conc 32.1 g/dL (32-36); Mean Corpuscular Hgb 28.9 pg (27.0-32.0); Mean Corpuscular Volume 90.2 fL (81-99); Mean Platelet Vol. 11.9 fl (6.2-12.0); Monocyte# 0.81 X10^3/uL; Monocyte% 12.9 % (0-10); NRBC Flagged by Analyzer 0 % (0-5); Neutrophil # 3.65 X10^3/uL (2.7-7.7); Platelet Count 255 K/mm3 (150-450); RBC Distribution Width CV 17.3 % (11.6-14.6); RBC Distribution Width SD 56.4 fl (35.1-43.9); RET-HE 29.6 pg (30-35); Red Blood Count 2.35 M/mm3 (4.2-5.4); Reticulocyte Count 3.27 % (0.5-1.5); White Blood Count 6.3 K/mm3 (4.4-11.0)
[2024-07-27 12:41] LABS: Ferritin 158 ng/mL (22-378); Iron 28 ug/dL (50-170); LDH 155 U/L (84-246)
[2024-07-29 08:09] LABS: Endomysial Antibody IgA Negative (Negative); Haptoglobin 153 mg/dL (42-346); Immunoglobulin A 128 mg/dL (64-422); t-Transglutaminase IgA <2 U/mL (0-3)
== END | disposition home or self-care (01) ==
LOC: LAB 10:52
PROVIDERS: PCP Student in an Organized Health Care Education/Training Program; Referring Provider Internal Medicine Gastroenterology; Visit Provider Internal Medicine Gastroenterology
DX: D62 Acute posthemorrhagic anemia (principal)
CPT/HCPCS: 36415; 82728; 82784; 83010; 83516; 83540; 83615; 85025; 85045; 86255

== ENCOUNTER → 2024-08-12 | Outpatient (CLI) | payer MEDICARE, SELFPAY | END | disposition home or self-care (01) | LOC: LABSPEC 13:10 | PROVIDERS: PCP Student in an Organized Health Care Education/Training Program; Referring Provider Nurse Practitioner Family; Visit Provider Nurse Practitioner Family | DX: D62 Acute posthemorrhagic anemia (principal) | CPT/HCPCS: 82274 ==

== ENCOUNTER → 2024-10-28 | Outpatient (CLI) | payer MEDICARE, SELFPAY ==
--- NOTE | 2024-10-28 13:30 | CT_ITS ---
PROCEDURE: CT CHEST, ABD, PEL W/CONTRAST 10/28/2024 REASON FOR EXAM: LUNG CA-IV ONLY TECHNIQUE: Chest, abdomen and pelvis CT with intravenous contrast. Coronal and Sagittal reconstruction series were provided. One or more dose reduction techniques were used (e.g., Automated exposure control, adjustment of the mA and/or kV according to patient size, use of iterative reconstruction technique. PATIENT PREPARATION: Per protocol ORAL CONTRAST TYPE: None. AMOUNT: mL RADIATION DOSE SUMMARY: CTDlvol: 26 mGy DLP: 404 mGycm FINDINGS: Emphysema and smoking-related interstitial lung disease. Apical scarring. No pneumothorax or pleural effusion. Interval resolution of small left effusion. On the left, paramedian bandlike atelectasis/scarring, series 6, image 41, with traction bronchiectasis and architectural distortion, similar to the previous examination. In the medial lower lobe, series 6, image 56, pleural-based nodular density, stable, favoring scarring. On the right, no consolidation or suspicious lung nodules. Unremarkable base of neck and axilla. Thoracic spine degeneration. Normal esophagus. Normal heart size. No acute vascular pathology. Right-sided port. No acute chest wall findings. Multiple liver hypodensities favoring cysts. Mild hepatomegaly, correlate for medical liver disease. Multiple small nodular densities posterior to the liver, series 3, image 16, for example, are stable and may represent splenules. Status post splenectomy. Unremarkable kidneys and adrenal glands. Normal pancreas. No hydronephrosis or ureteral stone. Normal bladder. There is an unusual amount of uterine cavity fluid given the patient's age, series 3, images 77/78, recommend pelvic ultrasound. No retroperitoneal or pelvic adenopathy. No free air. Nondistended bowel. No acute large bowel findings. Diverticulosis. No acute large bowel findings. Lumbar spine degeneration. Acute abdominal wall findings. CT/CT Chest, Abd, Pel w/Contrast IMPRESSION: Postradiation changes left lung. No evidence for new chest abdomen or pelvic metastatic disease. Reading Location: [place] [id number]
[2024-10-28] MEDS: 0.9% Saline Lock 10 ML Syringe IV (13:55)
== END | disposition home or self-care (01) ==
LOC: CT 13:29
PROVIDERS: PCP Student in an Organized Health Care Education/Training Program; Referring Provider Internal Medicine Medical Oncology; Visit Provider Internal Medicine Medical Oncology
DX: C34.32 Malignant neoplasm of lower lobe, left bronchus or lung (principal)
CPT/HCPCS: 71260; 74177; Q9967; A4216

== ENCOUNTER → 2024-12-10 | Outpatient (CLI) | payer MEDICARE, SELFPAY ==
[2024-12-10 10:10] LABS: Hematocrit 34.5 % (37-47); Hemoglobin 11.4 g/dL (12.0-15.0); Immature Granulocytes Count 0.010 X10^3/uL (0.0-0.0); Mean Corp Hgb Conc 33.0 g/dL (32-36); Mean Corpuscular Volume 87.8 fL (81-99); Mean Platelet Vol. 11.7 fl (6.2-12.0); NRBC Flagged by Analyzer 0 % (0-5); Platelet Count 169 K/mm3 (150-450); RBC Distribution Width CV 16.2 % (11.6-14.6); RBC Distribution Width SD 52.9 fl (35.1-43.9); Red Blood Count 3.93 M/mm3 (4.2-5.4); White Blood Count 5.4 K/mm3 (4.4-11.0)
== END | disposition home or self-care (01) ==
PROVIDERS: PCP Student in an Organized Health Care Education/Training Program; Referring Provider Student in an Organized Health Care Education/Training Program; Visit Provider Student in an Organized Health Care Education/Training Program
DX: D64.9 Anemia, unspecified (principal)
CPT/HCPCS: 36415; 85025

== ENCOUNTER → 2025-03-02 | Outpatient (CLI) | payer MEDICARE, SELFPAY ==
[2025-03-02 11:16] LABS: Hematocrit 37.0 % (37-47); Hemoglobin 12.3 g/dL (12.0-15.0); Immature Granulocytes Count 0.010 X10^3/uL (0.0-0.0); Mean Corp Hgb Conc 33.2 g/dL (32-36); Mean Corpuscular Volume 88.7 fL (81-99); Mean Platelet Vol. 11.2 fl (6.2-12.0); NRBC Flagged by Analyzer 0 % (0-5); Platelet Count 205 K/mm3 (150-450); RBC Distribution Width CV 14.1 % (11.6-14.6); RBC Distribution Width SD 45.5 fl (35.1-43.9); Red Blood Count 4.17 M/mm3 (4.2-5.4); White Blood Count 6.4 K/mm3 (4.4-11.0)
== END | disposition home or self-care (01) ==
LOC: PAVLAB 11:05
PROVIDERS: PCP Student in an Organized Health Care Education/Training Program; Referring Provider Student in an Organized Health Care Education/Training Program; Visit Provider Student in an Organized Health Care Education/Training Program
DX: D64.9 Anemia, unspecified (principal)
CPT/HCPCS: 36415; 85025

== ENCOUNTER → 2025-03-16 | Outpatient (CLI) | payer MEDICARE, SELFPAY ==
[2025-03-16 08:39] VITALS: PULSE 70; PULSE 79; PULSE 81; PULSE 83; PULSE 84; PULSE 88; PULSE 89; PULSE 91; O2SAT 91; O2SAT 92; O2SAT 93; O2SAT 94; O2SAT 97
--- NOTE | 2025-03-19 11:40 | WT_ITS ---
PSN 6 Minute Walk Test 6 Minute Walk Test 6 Minute Walk Test: 6 Minute Walk Test PSN:6-Minute Walk Test Start: 03/16/25 08:39 Freq: Status: Active Protocol: RESP.6MINW Document 03/16/25 08:39 [facility] (Rec: 03/16/25 08:43 [facility] [id number]) 6 Minute Walk Test Date Performed 03/16/25 Time Performed 08:15 Height 5 ft 3 in Weight: 98 lb Weight in Pounds 98.[address]: Sherri Mancera [employer] Assistive device None used: Pre-test Oxygen Delivery Room Air Method Pulse Ox (%) 97 Pulse Rate (60-100 70 beats/min) Dyspnea Vinnie Scale ( 1 0-10) Exertion Vinnie Scale 8 (6-20) 1st minute Oxygen Delivery Room Air Method Pulse Ox (%) 93 Pulse Rate (60-100 81 beats/min) Dyspnea Vinnie Scale ( 1 0-10) Number of Rests 0 Taken 2nd minute Oxygen Delivery Room Air Method Pulse Ox (%) 92 Pulse Rate (60-100 83 beats/min) Dyspnea Vinnie Scale ( 1 0-10) Number of Rests 0 Taken 3rd minute Oxygen Delivery Room Air Method Pulse Ox (%) 92 Pulse Rate (60-100 84 beats/min) Dyspnea Vinnie Scale ( 2 0-10) Number of Rests 0 Taken 4th minute Oxygen Delivery Room Air Method Pulse Ox (%) 91 Pulse Rate (60-100 88 beats/min) Dyspnea Vinnie Scale ( 2 0-10) Exertion Vinnie Scale 14 (6-20) Number of Rests 0 Taken 5th minute Oxygen Delivery Room Air Method Pulse Ox (%) 91 Pulse Rate (60-100 89 beats/min) Dyspnea Vinnie Scale ( 2 0-10) Number of Rests 0 Taken 6th minute Oxygen Delivery Room Air Method Pulse Ox (%) 93 Pulse Rate (60-100 91 beats/min) Dyspnea Vinnie Scale ( 2 0-10) Number of Rests 0 Taken Post-test Oxygen Delivery Room Air Method Pulse Ox (%) 94 Pulse Rate (60-100 79 beats/min) Dyspnea Vinnie Scale ( 2 0-10) Exertion Vinnie Scale 8 (6-20) Full Laps Walked 14 Partial Lap, Number 30 of Tiles Walked Total Distance 856 Walked (ft) Interpretation Interpretation: The patient ambulated 856 feet over the course of 6 minutes beginning on room air without assistive devices. Pretesting oxygen saturation was noted to be 97% on room air. With ambulation, the dina oxygen saturation was 91%. This represents a significant exertional oxygen desaturation, consistent with a pulmonary limitation to exercise tolerance. Recommendations Recommendations: There is no indication for the use of supplemental oxygen at this time. However, close interval follow-up is recommended, given the degree of oxygen desaturation noted during this study.
== END | disposition home or self-care (01) ==
LOC: PSN 08:09
PROVIDERS: PCP Student in an Organized Health Care Education/Training Program; Referring Provider Nurse Practitioner Acute Care; Visit Provider Nurse Practitioner Acute Care
DX: J44.9 Chronic obstructive pulmonary disease, unspecified (principal)
CPT/HCPCS: 94618

== ENCOUNTER → 2025-03-19 | Outpatient (CLI) | payer MEDICARE, SELFPAY | END | disposition home or self-care (01) | LOC: PSN 09:31 | PROVIDERS: PCP Student in an Organized Health Care Education/Training Program; Referring Provider Nurse Practitioner Acute Care; Visit Provider Nurse Practitioner Acute Care | DX: J44.9 Chronic obstructive pulmonary disease, unspecified (principal) | CPT/HCPCS: 94060; 94726; 94729 ==